=== PATIENT | male | born 1965 | race Caucasian/White ===

== ENCOUNTER 2023-09-13 20:31 | Emergency (ER) | payer OTHER, SELFPAY ==
[2023-09-13 20:35] VITALS: BMI 22.1
[2023-09-13 20:36] VITALS: BP 139/79; BMI 22.4
[2023-09-13 21:13] LABS: % Basophils 0.4 % (0-2); % Eosinophils 1.6 % (0-6); % Immature Granulocytes 0.2 % (0-0.5); % Lymphocytes 23.1 % (20.5-51.1); % Monocytes 6.6 % (1.7-9.3); % Neutrophils 68.1 % (42.2-75.2); Absolute Eosinophils 0.1 10^3/uL (0-0.7); Absolute Monocytes 0.6 10^3/uL (0.1-0.6); Absolute Neutrophils 5.8 10^3/uL (1.4-6.5); Hematocrit 31.9 % (39.0-52.0); Hemoglobin 10.9 g/dL (13.0-18.0); Mean Corp Hgb Conc. 34.2 g/dL (33.0-37.0); Mean Corpuscular Hgb 31.3 pg (27.0-31.0); Mean Corpuscular Volume 91.7 fL (80.0-94.0); Mean Platelet Volume 10.7 fL (7.4-10.4); Nucleated Red Blood Cells % 0 % (-); Platelet Count 200 10^3/uL (130-400); Red Blood Cell Count 3.48 10^6/uL (4.70-6.10); Red Cell Dist. Width 14.5 % (11.5-14.5); White Blood Cell Count 8.5 10^3/uL (4.8-10.8)
[2023-09-13 21:15] LABS: ALT (SGPT) < 10 U/L (0-50); AST (SGOT) 17 U/L (17-59); Albumin 3.8 g/dl (3.5-5.0); Alkaline Phosphatase 132 U/L (38-126); Blood Urea Nitrogen 16 mg/dl (9-20); Calcium 8.9 mg/dl (8.4-10.2); Carbon Dioxide 37 mmol/L (22-30); Chloride 92 mmol/L (98-107); Estimated Creatinine Clearance 22 ml/min; Glucose 97 mg/dl (70-99); Potassium 3.9 mmol/L (3.5-5.1); Sodium 134 mmol/L (135-145); Total Bilirubin 0.7 mg/dl (0.2-1.3); Total Protein 6.8 g/dl (6.3-8.2); Troponin I < 0.012 ng/ml; eGFR 18.76
[2023-09-13 22:05] VITALS: BP 126/105
[2023-09-13 23:00] VITALS: BP 133/67
--- NOTE | 2023-09-13 23:27 | ED.GENMED ---
History of Present Illness
General
Chief Complaint: Chest Pain
Source: patient, spouse, previous radiology exam (CT chest abdomen pelvis July 22, 2023 showed fusiform aneurysmal dilation suprarenal abdominal aorta, large amount of calcific and soft atherosclerotic plaque throughout the descending thoracic
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
Exam Limitations: none
Time Seen by Provider: 09/13/23 22:14
Nursing documentation reviewed up to this point in time: agreed with
Travel History
Have you had any contact with someone who has COVID-19?: No
Do you have any symptoms of coronavirus? Fever > 100 degrees, chills, cough, shortness of breath, sore throat, loss of taste or smell, muscle aches, or headache?: No
History of Present Illness
History of Present Illness:
This is a 57-year-old gentleman who has history of end-stage renal disease/dialysis dependent Monday/Monday/Monday, history of hypertension, CAD, PTCA with stent, CABG, hyperlipidemia. Recent hospitalization August 02 to August 08 for treatment
of acute/flash pulmonary edema with accelerated hypertension, VDRF.
He underwent cardiac catheterization during that hospitalization on August 07 which showed chronic total occlusion RCA and 80% lesion mid LAD with a patent stent in the proximal circumflex and status post single-vessel bypass with patent BLOOD to
LAD. No intervention required. Chronically occluded RCA is supplied by collaterals from the circumflex and LAD.
He presents to to the ED tonight from dialysis with complaints of severe substernal chest pain that radiates to his back that began towards the end of his dialysis treatment. He states dialysis was discontinued approximately 30 minutes prior to his
usual ending time. He denies shortness of breath, no nausea nor vomiting, no diaphoresis, no palpitations.
No definitive aggravating or relieving factors.
Moderate pain upon arrival to the ED had resolved but intermittently returns.
He has history of abdominal aortic aneurysm repair/bypass graft and history of suprarenal abdominal aortic aneurysm�4.5 cm as well as history of significant atherosclerosis of thoracic and abdominal right aorta as well as history of significant
intra-abdominal atherosclerosis.
He suffered COVID-19 URI 2 weeks ago, testing + August 29. URI symptoms resolved last week but he does continue with mild intermittent dry cough. He has had no shortness of breath.
He has noted some intermittent mid to lower abdominal crampy pain over the past week and initially thought that he was constipated. He gave himself a suppository yesterday and did pass a somewhat hard nonbloody stool today. No change in abdominal
pain that has been intermittent, mid to lower abdominal pain, somewhat crampy in nature.
He denies fever nor chills.
He is chronically an uric.
Past History
Past History
ED Past Medical History: CAD, HTN, Hypercholesterolemia, IDDM, Renal failure and Other (End-stage renal disease, diabetic neuropathy, severe ASCVD)
ED Past Surgical History: Cardiac (CABG of LAD February 07, 2022; PTCA with stent), Orthopedic (Left knee) and Other (AAA repair December 2019)
Social History
Tobacco: Smoker
Alcohol: Daily
Drug: None
Personal:
Living: with family
Employment: Employed
Family History
Family History: Other (AAA, CAD)
Phy Exam
Physical Exam
Physical Exam:
GENERAL: Alert , in no apparent distress. 57-year-old gentleman appears his stated age, awake and alert, pleasant, appears in no acute distress. at bedside.
EYE: pupils equal and reactive. anicteric
NECK: Supple, nontender, no meningismus, no significant adenopathy.
ENT: oral mucosa is moist. No rhinorrhea.
CARDIAC: Regular rate and rhythm. no murmur.
LUNGS: Clear breath sounds bilaterally, no acute respiratory distress, no wheezes/rales/rhonchi
ABDOMEN: Soft, nondistended, mild tenderness right lower quadrant as well as mild tenderness epigastric region, no r/g, no cvat. normoactive BS. No palpable masses.
NEUROLOGICAL: Alert and oriented x3, no focal neuro deficits.
SKIN: Warm and dry, normal color, skin intact. No rash.
MUSCULOSKELETAL: No C/C/E. peripheral pulses are full and equal b/l. No palpable tenderness. AV graft left upper arm.
PSYCH: Normal and appropriate interaction.
Scores
Heart Score for Chest Pain Patients
STEMI patient?: No
History: Slightly or Non-Suspicious
ECG: Normal
Age: >45 - <65 years
Risk Factors: >/= 3 Risk Factors or History of CAD
Troponin: </= Normal Limit
Heart Score for Chest Pain Patients: 3
Heart Score Risk: 2.5% MACE over next 6 weeks
Course
Orders/Labs/Results
Orders:
Orders
09/13/23 20:35
Electrocardiogram (*1) Urgent
Reason for Study: Chest Pain
EKG- Treatment ONCE
09/13/23 20:42
Complete Blood Count/With Diff Urgent
Comprehensive Metabolic Panel Urgent
Lipase Urgent
Comment: ADD ON
Troponin I Urgent
09/13/23 22:51
Add On- LAB Urgent
Tests Added?: lipase
09/13/23 22:56
Lactic Acid Urgent
09/13/23 22:57
EKG- Treatment ONCE
Troponin I Urgent
09/14/23 00:30
Ct Chest/Abd/Pel Angio W/Wo Iv Urgent
Reason For Exam: severe CP rad to back, mid/lower abd pain
09/14/23 01:54
Pantoprazole [Protonix] 40 mg PO NOW STA
Abnormal Lab Results
09/13/23
20:42
RBC 3.48 L 10^6/uL
(4.70-6.10)
Hgb 10.9 L g/dL
(13.0-18.0)
Hct 31.9 L %
(39.0-52.0)
MCH 31.3 H pg
(27.0-31.0)
MPV 10.7 H fL
(7.4-10.4)
Sodium 134 L mmol/L
(135-145)
Chloride 92 L mmol/L
(98-107)
Carbon Dioxide 37 H mmol/L
(22-30)
Creatinine 3.6 H mg/dL
(0.7-1.3)
Alkaline Phosphatase 132 H U/L
(38-126)
09/13/23 20:42
09/13/23 20:42
Vital Signs
Initial and Last Documented VS:
Initial Vital Signs
Temp Pulse Resp BP Pulse Ox
98.2 F 93 16 139/79 98
09/13/23 20:36 09/13/23 20:36 09/13/23 20:36 09/13/23 20:36 09/13/23 20:36
Last Documented Vital Signs
Temp Pulse Resp BP Pulse Ox
98.2 F 77 11 106/68 98
09/13/23 20:36 09/14/23 01:45 09/14/23 01:45 09/14/23 01:00 09/14/23 01:45
MDM/Problems Addressed
Differential Diagnosis Includes:
Concern for ACS, GERD, biliary colic, aortic dissection. Patient pneumonia is less likely. He does note mild residual cough status post COVID URI 2 weeks ago. Post COVID PE is certainly a consideration.
He has had a 1 week history of intermittent mid to lower abdominal pain with known atherosclerosis, concern for intermittent ischemic bowel is certainly a consideration. Other consideration is biliary colic, appendicitis, constipation, pancreatitis.
Thus far labs are reassuring with mild but stable anemia.
Creatinine of 3.6, mild metabolic alkalosis.
Alkaline phosphatase 132, improved from previous. All other LFTs within normal limits. Due to epigastric tenderness on exam will check lipase.
Will check lactic acid, concern for intermittent intra-abdominal ischemia.
Troponin thus far is negative and EKG is similar and unchanged from previous. Will plan to repeat both.
Due to significant chest pain, radiating to the back, intermittent abdominal pain, significant aortic atherosclerosis there is significant concern for dissection thus will check CTA chest abdomen pelvis.
*Radiology
Radiology exam reviewed: radiology read reviewed
*Pulse Oximetry
Patient hypoxic: no
*EKG
Interpreted by ED Provider?: Yes
Comparison EKG: no changes
Rate: normal
Rhythm: sinus
[place]: left axis deviation
Interval: normal interval
QRS Pattern: normal QRS
Ischemia: no ischemia
*Foundry Molder Interpretation
Rate: normal
Interpretation: normal
Rhythm: sinus
*Critical Care Note
Total Time (30-74mins, 75-104mins- exclusive of procedures): Not Applicable
Update Note
Update Note:
09/14/2023 0155 AM
Patient remains pain-free and comfortable.
Repeat troponin is negative.
Lactic acid is normal at 0.9.
CTA chest abdomen pelvis similar and unchanged from previous showing extensive soft calcific atherosclerotic plaque along the thoracic and abdominal aorta but no evidence of dissection. No bowel obstruction nor obstructive uropathy. Unremarkable
CT appearance of the gallbladder, biliary tract and pancreas.
Intermittent chest pain along with mild epigastric tenderness to palpation may be gastritis/GERD in nature and recommend initiation of short course of Protonix and will add Carafate for as needed chest pain.
Prompt follow-up with PCP, inside sales account representative and primary finisher merchant products.
Return precautions discussed.
ED Attending Note
-
Portions of this chart may have been created with voice recognition software.� Occasional wrong word or��sound alike� substitutions may have occurred due to the inherent limitations of voice recognition software.
Discharge Plan
Departure
Patient Disposition: Home (Routine Discharge)
Date of Disposition: 09/14/23
Time of Disposition: 01:56
Patient with high blood pressure during this ER visit?: No
Condition: Good
Discharge Problem:
Nonspecific chest pain
Instructions: Acid Reflux and GERD in Adults (DC), Chest Pain NON-DHP Body Coverer Follow Up
Prescriptions:
New
pantoprazole 20 mg tablet,delayed release (DR/EC)
20 mg PO DAILY Qty: 30 0RF
sucralfate 1 gram tablet
1 g PO QIDPRN PRN (Reason: acid reflux) Qty: 30 0RF
No Action
atorvastatin 80 MG tablet
80 mg PO HS
gabapentin 300 MG capsule
300 mg PO HS
cholecalciferol (vitamin D3) 1,000 UNITS tablet
1,000 units PO DAILY
carvedilol 12.5 mg Tablet
25 mg PO BID Qty: 60 0RF
aspirin 81 mg Tablet,Delayed Release (Dr/Ec)
81 mg PO DAILY
Velphoro 500 mg tablet,chewable
500 mg PO MEALS
Lokelma 10 gram powder in packet
10 g PO .UD NON HD DAYS
lisinopril 10 mg Tablet
10 mg PO DAILY
Levemir FlexPen 100 unit/mL (3 mL) Insulin Pen
5 unit SC HS
sodium polystyrene sulfonate 15 gram/60 mL Suspension
60 ml PO DAILY
Patient Comments:
filled on 07/10/23
insulin aspart U-100 [Novolog U-100 Insulin aspart] 100 unit/mL Solution
5 unit SC AC
Referrals:
Troy Husain MD [Family Provider] - Call in 1-3 days for appt
Interventions
Interventions:
*Risk Screen - Suicide Last Done: 09/13/23 20:36
*General Assessment Last Done: 09/13/23 22:06
*Neglect/Abuse Screening Last Done: 09/13/23 20:36
ED- Fall Risk Assessment Last Done: 09/13/23 22:08
*ED COVID-19 Vaccine History Last Done: 09/13/23 20:36
*Nursing Disposition Last Done: 09/14/23 02:04
ED- Cardiac Assessment Last Done: 09/13/23 22:07
Discharge Date and Time
Discharge Date/Time: 09/14/23 02:05
[2023-09-13 23:30] LABS: Lipase 157 U/L (23-300)
[2023-09-14] VITALS: BP 114/57
[2023-09-14 00:30] LABS: Lactic Acid 0.9 mmol/L (0.7-2.0)
[2023-09-14 00:43] LABS: Troponin I < 0.012 ng/ml
[2023-09-14 00:47] VITALS: BP 125/69
[2023-09-14 01:00] VITALS: BP 106/68
[2023-09-14] MEDS: PROTONIX 40 MG PO (02:00)
== END 2023-09-14 02:05 | disposition home or self-care (01) ==
LOC: EMR 20:31
PROVIDERS: Emergency Medicine; EMERGENCY PHYSICIAN Emergency Medicine; FAMILY PHYSICIAN Internal Medicine
DX: R07.89 Other chest pain (principal); I25.10 Atherosclerotic heart disease of native coronary artery without angina pectoris; I12.0 Hypertensive chronic kidney disease with stage 5 chronic kidney disease or end stage renal disease; N18.6 End stage renal disease; E11.22 Type 2 diabetes mellitus with diabetic chronic kidney disease; E11.40 Type 2 diabetes mellitus with diabetic neuropathy, unspecified; D64.9 Anemia, unspecified; E78.00 Pure hypercholesterolemia, unspecified; F17.200 Nicotine dependence, unspecified, uncomplicated; Z82.49 Family history of ischemic heart disease and other diseases of the circulatory system; Z86.79 Personal history of other diseases of the circulatory system; Z95.1 Presence of aortocoronary bypass graft; Z95.5 Presence of coronary angioplasty implant and graft; Z99.2 Dependence on renal dialysis
CPT/HCPCS: 99284; 71275; 74174; 80053; 83605; 83690; 84484; 85025; 93005; Q9967

== ENCOUNTER 2023-09-28 08:38 | Outpatient (RCR) | payer OTHER, SELFPAY ==
[2023-09-27 13:29] LABS: Glucose - Point of Care 269 mg/dl (70-99)
[2023-09-27 14:07] LABS: Glucose - Point of Care 217 mg/dl (70-99)
[2023-09-28 08:38] LABS: Glucose - Point of Care 181 mg/dl (70-99)
[2023-09-28 09:16] LABS: Glucose - Point of Care 197 mg/dl (70-99)
== END 2023-09-28 23:59 | disposition home or self-care (01) ==
LOC: CRHB 08:38
PROVIDERS: ATTENDING PHYSICIAN Surgery Vascular Surgery; FAMILY PHYSICIAN Internal Medicine
DX: I70.213 Atherosclerosis of native arteries of extremities with intermittent claudication, bilateral legs (principal)
CPT/HCPCS: 82962; 93668

== ENCOUNTER 2023-10-08 12:38 | Emergency (ER) | payer OTHER, SELFPAY ==
[2023-10-08 12:41] VITALS: BP 164/94
[2023-10-08 12:58] VITALS: BP 175/89
--- NOTE | 2023-10-08 12:59 | ED.GENMED ---
History of Present Illness
General
Chief Complaint: Back Pain
Source: patient and other
Time Seen by Provider: 10/08/23 12:49
Travel History
Have you had any contact with someone who has COVID-19?: No
Do you have any symptoms of coronavirus? Fever > 100 degrees, chills, cough, shortness of breath, sore throat, loss of taste or smell, muscle aches, or headache?: No
History of Present Illness
History of Present Illness:
57-year-old male started with vague chest pain and upper back pain 2 days ago. Progressed and became much more severe to the excruciating point today. Nonpleuritic. Mid chest radiating to the back. No nausea or vomiting. Patient does not want
to add history and when asked becomes very angry to answer questions.
Past History
Past History
ED Past Medical History: CAD, HTN, Hypercholesterolemia, IDDM, Renal failure and Other (End-stage renal disease, diabetic neuropathy, severe ASCVD)
ED Past Surgical History: Cardiac (CABG of LAD February 07, 2022; PTCA with stent), Orthopedic (Left knee) and Other (AAA repair December 2019)
Social History
Tobacco: Smoker
Alcohol: Daily
Drug: None
Personal:
Living: with family
Employment: Employed
Family History
Family History: Other (AAA, CAD)
Review of Systems
Review of Systems
All Other Systems: Not applicable
Constitutional: Denies fever
Respiratory: Denies trouble breathing
Cardiac: Denies palpitations
Phy Exam
Physical Exam
Physical Exam:
GENERAL: Alert and oriented. Screaming in pain. Very angry answering questions and angry with staff
EYE: Orbits normal.
NECK: Supple
CARDIAC: Regular rate and rhythm without any obvious murmurs.
LUNGS: Clear breath sounds,normal
ABDOMEN: Soft, without focal tenderness or distention. Some left CVA tenderness
NEUROLOGICAL: Alert and oriented , grossly non-focal
SKIN: Warm and dry, no rash or lesion, no discoloration, skin intact. No vesicular rash
MUSCULOSKELETAL: Shunt left arm. Good thrill.
PSYCH: Normal and appropriate interaction.
Course
Orders/Labs/Results
Orders:
Orders
10/08/23 12:39
EKG [Electrocardiogram (*1)] Urgent
Reason for Study: Chest Pain
EKG- Treatment ONCE
10/08/23 12:54
CT Chest/abd/pelvis Angio W/wo Urgent
Comment:
Reason For Exam: Severe chest pain radiating to the back
IV Insert/Care/Rem.- Treatment PRN
Pulse Ox/cont/shift [RESP] Stat
Quantity: 1
10/08/23 12:55
Cardiac Monitoring- Treatment ONCE
HYDROmorphone [Dilaudid] 0.5 mg .ROUTE .STK-MED ONE
10/08/23 12:56
HYDROmorphone [Dilaudid] 0.5 mg IV NOW STA
10/08/23 12:58
Complete Blood Count/With Diff Urgent
Comprehensive Metabolic Panel Urgent
Lipase Urgent
PTT Urgent
Prothrombin Time Urgent
Troponin I Urgent
10/08/23 13:11
HYDROmorphone [Dilaudid] 0.5 mg IV NOW STA
Abnormal Lab Results
10/08/23
12:58
RBC 3.38 L 10^6/uL
(4.70-6.10)
Hgb 10.4 L g/dL
(13.0-18.0)
Hct 30.5 L %
(39.0-52.0)
RDW 15.8 H %
(11.5-14.5)
MPV 10.6 H fL
(7.4-10.4)
APTT 35.5 H Sec
(23.4-35.0)
Sodium 134 L mmol/L
(135-145)
Chloride 92 L mmol/L
(98-107)
Carbon Dioxide 31 H mmol/L
(22-30)
BUN 40 H mg/dl
(9-20)
Creatinine 7.5 H* mg/dL
(0.7-1.3)
Glucose 211 H mg/dl
(70-99)
AST 16 L U/L
(17-59)
Alkaline Phosphatase 176 H U/L
(38-126)
10/08/23 12:58
10/08/23 12:58
Vital Signs
Initial and Last Documented VS:
Initial Vital Signs
Temp Pulse Resp BP Pulse Ox
97.5 F 87 20 164/94 100
10/08/23 12:41 10/08/23 12:41 10/08/23 12:41 10/08/23 12:41 10/08/23 12:41
Last Documented Vital Signs
Temp Pulse Resp BP Pulse Ox
97.5 F 81 25 160/79 99
10/08/23 12:41 10/08/23 15:00 10/08/23 15:00 10/08/23 15:00 10/08/23 15:00
MDM/Problems Addressed
Differential Diagnosis Includes:
Progressive chest pain rating to the back. Cardiac, dissection, kidney stone all in the differential. Previous episode September 13 is describing a similar type event with a negative CT at that time. However patient warrants repeat workup given
the severity of his symptoms.
*Radiology
Radiology exam reviewed: radiology read reviewed (No acute findings. Stable disease. Small new ulcerative plaque. Otherwise unremarkable.)
*Pulse Oximetry
Patient hypoxic: no
*EKG
Interpreted by ED Provider?: Yes
Interpretation: normal
Comparison EKG: no changes
Heart Rate: 87
Rate: normal
Rhythm: sinus
[place]: normal axis
Interval: normal interval
QRS Pattern: normal QRS
Ischemia: no ischemia
*Associate Professor Of Pathology Interpretation
Rate: normal
Interpretation: normal
Heart Rate: 85
Rhythm: sinus
*Critical Care Note
Total Time (30-74mins, 75-104mins- exclusive of procedures): Not Applicable
Data Reviewed
Review of Other/Old Records Reveals: Labs, Records and Testing
Update Note
Update Note:
Recommended patient stay for repeat cardiac testing and stay for observation and pain management. Patient refuses. I reviewed all his testing with him. Also made vascular surgery aware. However there does not appear to be any acute surgical
vascular findings.
ED Attending Note
-
Portions of this chart may have been created with voice recognition software.� Occasional wrong word or��sound alike� substitutions may have occurred due to the inherent limitations of voice recognition software.
Discharge Plan
Departure
Patient Disposition: Home (Routine Discharge)
Date of Disposition: 10/08/23
Time of Disposition: 14:59
Patient with high blood pressure during this ER visit?: Yes
Discharge Problem:
Chest pain/radiation to back, Known abdominal aneurysm, History of renal failure
Instructions: Chest Pain (DC), Upper Back Pain (DC), BLOOD PRESSURE
Prescriptions:
New
hydrocodone-acetaminophen 5-325 mg tablet
1 tab PO Q8H PRN (Reason: Pain) Qty: 10 0RF
No Action
atorvastatin 80 MG tablet
80 mg PO HS
gabapentin 300 MG capsule
300 mg PO HS
cholecalciferol (vitamin D3) 1,000 UNITS tablet
1,000 units PO DAILY
carvedilol 12.5 mg Tablet
25 mg PO BID Qty: 60 0RF
aspirin 81 mg Tablet,Delayed Release (Dr/Ec)
81 mg PO DAILY
Velphoro 500 mg tablet,chewable
500 mg PO MEALS
Lokelma 10 gram powder in packet
10 g PO .UD NON HD DAYS
lisinopril 10 mg Tablet
10 mg PO DAILY
Levemir FlexPen 100 unit/mL (3 mL) Insulin Pen
5 unit SC HS
sodium polystyrene sulfonate 15 gram/60 mL Suspension
60 ml PO DAILY
Patient Comments:
filled on 07/10/23
insulin aspart U-100 [Novolog U-100 Insulin aspart] 100 unit/mL Solution
5 unit SC AC
pantoprazole 20 mg tablet,delayed release (DR/EC)
20 mg PO DAILY Qty: 30 0RF
sucralfate 1 gram tablet
1 g PO QIDPRN PRN (Reason: acid reflux) Qty: 30 0RF
Referrals:
Troy Husain PA [Family Provider] - Follow up in 2-3 days
Activity Restrictions/Additional Instructions:
The prescription was sent into your pharmacy
Follow-up closely with your vascular surgeon primary physician and jewelry sorter please return sooner with increasing pain
Any new chest pain shortness of breath fever or any other concerning symptoms
Interventions
Interventions:
*Risk Screen - Suicide Last Done: 10/08/23 15:11
*General Assessment Last Done: 10/08/23 12:41
*Neglect/Abuse Screening Last Done: 10/08/23 15:11
*ED COVID-19 Vaccine History Last Done: 10/08/23 12:41
*Nursing Disposition Last Done: 10/08/23 15:13
ED-Musculoskeletal Assessment Last Done: 10/08/23 12:50
Discharge Date and Time
Discharge Date/Time: 10/08/23 15:16
[2023-10-08] MEDS: DILAUDID 0.5 MG IV ×2 (13:00→13:12)
--- NOTE | 2023-10-08 13:00 | EDRN ---
Pt yelling out on arrival, this RN immediately to front entrance to assist pt with brief registration, then brought directly to triage room. Attempt to obtain brief triage, during this process pt very confrontational, verbally insulting to this RN,
not answering assessment questions and yelling 'Do something!' Pt resistant to any explanation of ED process. Pt brought directly back to room [address] Navarro notified. This RN shortly thereafter to room 2 to assist Yaneth freelance designer with initial
workup. This RN witnessed pt again making insulting comments to Yaneth RN, continues to behave aggressively and remains inappropriate and confrontational.
[2023-10-08 13:08] LABS: % Basophils 0.7 % (0-2); % Eosinophils 2.7 % (0-6); % Immature Granulocytes 0.4 % (0-0.5); % Lymphocytes 21.7 % (20.5-51.1); % Monocytes 7.4 % (1.7-9.3); % Neutrophils 67.1 % (42.2-75.2); Absolute Basophils 0.1 10^3/uL (0-0.2); Absolute Eosinophils 0.2 10^3/uL (0-0.7); Absolute Lymphocytes 1.8 10^3/uL (1.2-3.4); Absolute Monocytes 0.6 10^3/uL (0.1-0.6); Absolute Neutrophils 5.6 10^3/uL (1.4-6.5); Hematocrit 30.5 % (39.0-52.0); Hemoglobin 10.4 g/dL (13.0-18.0); Mean Corp Hgb Conc. 34.1 g/dL (33.0-37.0); Mean Corpuscular Hgb 30.8 pg (27.0-31.0); Mean Corpuscular Volume 90.2 fL (80.0-94.0); Mean Platelet Volume 10.6 fL (7.4-10.4); Nucleated Red Blood Cells % 0 % (-); Platelet Count 212 10^3/uL (130-400); Red Blood Cell Count 3.38 10^6/uL (4.70-6.10); Red Cell Dist. Width 15.8 % (11.5-14.5); White Blood Cell Count 8.4 10^3/uL (4.8-10.8)
[2023-10-08 13:10] VITALS: BP 166/91
[2023-10-08 13:20] LABS: APTT 35.5 Sec (23.4-35.0); INR 1.01; PT 13.1 Sec (11.4-14.6)
[2023-10-08 13:27] LABS: ALT (SGPT) < 10 U/L (0-50); AST (SGOT) 16 U/L (17-59); Albumin 3.9 g/dl (3.5-5.0); Alkaline Phosphatase 176 U/L (38-126); Blood Urea Nitrogen 40 mg/dl (9-20); Calcium 9.3 mg/dl (8.4-10.2); Carbon Dioxide 31 mmol/L (22-30); Chloride 92 mmol/L (98-107); Glucose 211 mg/dl (70-99); Lipase 191 U/L (23-300); Potassium 4.4 mmol/L (3.5-5.1); Sodium 134 mmol/L (135-145); Total Bilirubin 0.6 mg/dl (0.2-1.3); Total Protein 6.8 g/dl (6.3-8.2); eGFR 7.77
[2023-10-08 13:30] VITALS: BP 178/83
[2023-10-08 13:35] LABS: Troponin I 0.014 ng/ml
[2023-10-08 14:00] VITALS: BP 168/81
[2023-10-08 15:00] VITALS: BP 160/79
== END 2023-10-08 15:16 | disposition home or self-care (01) ==
LOC: EMR 12:38
PROVIDERS: EMERGENCY PHYSICIAN Emergency Medicine; FAMILY PHYSICIAN Physician Assistant
DX: R07.89 Other chest pain (principal); M54.9 Dorsalgia, unspecified; I25.10 Atherosclerotic heart disease of native coronary artery without angina pectoris; E78.00 Pure hypercholesterolemia, unspecified; I13.2 Hypertensive heart and chronic kidney disease with heart failure and with stage 5 chronic kidney disease, or end stage renal disease; E11.22 Type 2 diabetes mellitus with diabetic chronic kidney disease; N18.6 End stage renal disease; I50.9 Heart failure, unspecified; E11.40 Type 2 diabetes mellitus with diabetic neuropathy, unspecified; Z95.1 Presence of aortocoronary bypass graft; F17.200 Nicotine dependence, unspecified, uncomplicated
CPT/HCPCS: 99284; 71275; 74174; 80053; 83690; 84484; 85025; 85610; 85730; 93005; Q9967

== ENCOUNTER 2023-10-19 08:50 | Outpatient (RCR) | payer OTHER, SELFPAY ==
[2023-10-03 08:36] LABS: Glucose - Point of Care 123 mg/dl (70-99)
[2023-10-03 09:15] LABS: Glucose - Point of Care 117 mg/dl (70-99)
[2023-10-05 08:34] LABS: Glucose - Point of Care 298 mg/dl (70-99)
[2023-10-05 09:10] LABS: Glucose - Point of Care 207 mg/dl (70-99)
[2023-10-10 08:37] LABS: Glucose - Point of Care 111 mg/dl (70-99)
[2023-10-10 09:16] LABS: Glucose - Point of Care 162 mg/dl (70-99)
[2023-10-17 08:37] LABS: Glucose - Point of Care 247 mg/dl (70-99)
[2023-10-17 09:14] LABS: Glucose - Point of Care 265 mg/dl (70-99)
[2023-10-19 08:37] LABS: Glucose - Point of Care 334 mg/dl (70-99)
== END 2023-10-19 23:59 | disposition home or self-care (01) ==
LOC: CRHB 08:50
PROVIDERS: ATTENDING PHYSICIAN Surgery Vascular Surgery; FAMILY PHYSICIAN Internal Medicine
DX: I70.213 Atherosclerosis of native arteries of extremities with intermittent claudication, bilateral legs (principal)
CPT/HCPCS: 82962; 93668

== ENCOUNTER → 2023-11-08 09:07 | Outpatient (REF) | payer OTHER, SELFPAY ==
[2023-11-09 10:16] LABS: Potassium 6.1 mmol/L (3.5-5.1)
== END ==
LOC: OLAB 09:07
PROVIDERS: ATTENDING PHYSICIAN Specialist
DX: N18.6 End stage renal disease (principal)
CPT/HCPCS: 84132

== ENCOUNTER 2023-11-16 08:53 | Outpatient (RCR) | payer OTHER, SELFPAY ==
[2023-11-09 08:38] LABS: Glucose - Point of Care 156 mg/dl (70-99)
[2023-11-09 09:12] LABS: Glucose - Point of Care 138 mg/dl (70-99)
[2023-11-14 08:33] LABS: Glucose - Point of Care 122 mg/dl (70-99)
[2023-11-14 09:07] LABS: Glucose - Point of Care 133 mg/dl (70-99)
[2023-11-16 08:34] LABS: Glucose - Point of Care 144 mg/dl (70-99)
[2023-11-16 09:24] LABS: Glucose - Point of Care 161 mg/dl (70-99)
== END 2023-11-16 23:59 | disposition home or self-care (01) ==
LOC: CRHB 08:53
PROVIDERS: ATTENDING PHYSICIAN Surgery Vascular Surgery; FAMILY PHYSICIAN Internal Medicine
DX: I70.213 Atherosclerosis of native arteries of extremities with intermittent claudication, bilateral legs (principal); I25.10 Atherosclerotic heart disease of native coronary artery without angina pectoris; Z95.5 Presence of coronary angioplasty implant and graft; Z95.1 Presence of aortocoronary bypass graft
CPT/HCPCS: 82962; 93668

== ENCOUNTER → 2024-04-24 09:28 | Outpatient (REF) | payer OTHER, SELFPAY | LOC: RAD 09:28 | PROVIDERS: ATTENDING PHYSICIAN Surgery Vascular Surgery; FAMILY PHYSICIAN Internal Medicine | DX: N18.6 End stage renal disease (principal); Z99.2 Dependence on renal dialysis; I71.43 Infrarenal abdominal aortic aneurysm, without rupture | CPT/HCPCS: 74174; Q9967 ==

== ENCOUNTER → 2024-04-26 10:49 | Outpatient (REF) | payer OTHER, SELFPAY | LOC: RAD 10:49 | PROVIDERS: ATTENDING PHYSICIAN Surgery Vascular Surgery; FAMILY PHYSICIAN Internal Medicine | DX: I73.9 Peripheral vascular disease, unspecified (principal) | CPT/HCPCS: 93922 ==

== ENCOUNTER → 2024-06-04 07:12 | Outpatient (REF) | payer OTHER, SELFPAY | LOC: HWRCS 07:12 | PROVIDERS: ATTENDING PHYSICIAN Internal Medicine Cardiovascular Disease; FAMILY PHYSICIAN Internal Medicine | DX: I25.5 Ischemic cardiomyopathy (principal) | CPT/HCPCS: 93306 ==

== ENCOUNTER → 2024-11-14 13:51 | Outpatient (REF) | payer OTHER, SELFPAY | LOC: DHVS 13:51 | PROVIDERS: ATTENDING PHYSICIAN Surgery Vascular Surgery; FAMILY PHYSICIAN Internal Medicine | DX: I77.0 Arteriovenous fistula, acquired (principal); I73.9 Peripheral vascular disease, unspecified | CPT/HCPCS: 93922; 93990 ==

== ENCOUNTER → 2024-11-21 07:50 | Outpatient (REF) | payer OTHER, SELFPAY | LOC: RAD 07:50 | PROVIDERS: ATTENDING PHYSICIAN Surgery Vascular Surgery; FAMILY PHYSICIAN Internal Medicine | DX: I71.40 Abdominal aortic aneurysm, without rupture, unspecified (principal) | CPT/HCPCS: 71275; 74174; Q9967 ==

== ENCOUNTER 2024-11-26 18:16 | Emergency (ER) | payer OTHER, SELFPAY ==
[2024-11-26 18:23] VITALS: BP 137/93
[2024-11-26 18:38] LABS: % Basophils 0.5 % (0-2); % Immature Granulocytes 0.5 % (0-0.5); % Lymphocytes 11.2 % (20.5-51.1); % Neutrophils 80.8 % (42.2-75.2); Absolute Basophils 0.1 10^3/uL (0-0.2); Absolute Eosinophils 0.2 10^3/uL (0-0.7); Absolute Immature Granulocytes 0.1 10^3/uL (0-0.05); Absolute Lymphocytes 1.7 10^3/uL (1.2-3.4); Absolute Monocytes 0.9 10^3/uL (0.1-0.6); Absolute Neutrophils 11.9 10^3/uL (1.4-6.5); Hematocrit 34.1 % (39.0-52.0); Hemoglobin 11.6 g/dL (13.0-18.0); Mean Corpuscular Hgb 33.2 pg (27.0-31.0); Mean Corpuscular Volume 97.7 fL (80.0-94.0); Mean Platelet Volume 10.9 fL (7.4-10.4); Nucleated Red Blood Cells % 0 % (-); Platelet Count 141 10^3/uL (130-400); Red Blood Cell Count 3.49 10^6/uL (4.70-6.10); White Blood Cell Count 14.8 10^3/uL (4.8-10.8)
[2024-11-26 19:05] LABS: ALT (SGPT) 13 U/L (0-50); AST (SGOT) 16 U/L (17-59); Albumin 3.9 g/dl (3.5-5.0); Alkaline Phosphatase 122 U/L (38-126); Blood Urea Nitrogen 27 mg/dl (9-20); Calcium 9.9 mg/dl (8.4-10.2); Carbon Dioxide 31 mmol/L (22-30); Chloride 93 mmol/L (98-107); Glucose 132 mg/dl (70-99); Lipase 288 U/L (23-300); Potassium 4.9 mmol/L (3.5-5.1); Sodium 137 mmol/L (135-145); Total Bilirubin 0.8 mg/dl (0.2-1.3); Total Protein 6.5 g/dl (6.3-8.2); eGFR 7.93
--- NOTE | 2024-11-26 20:50 | ED.GENMED ---
History of Present Illness
General
Chief Complaint: Abdominal Pain
Source: patient
Exam Limitations: none
Time Seen by Provider: 11/26/24 20:21
Nursing documentation reviewed up to this point in time: agreed with
History of Present Illness
History of Present Illness:
Patient is a 59-year-old male with past medical history of end-stage renal disease on hemodialysis Monday, abdominal aortic aneurysm repair, CABG, pulmonary edema neuropathy presents to the ER with right lower quadrant pain which
started last night. Patient complains of persistent right lower quadrant pain. He denies any nausea vomiting fever chills. PT admits to ' a little diarrhea last night and this am .'
Incidentally patient recently had a CT chest abdomen pelvis angiogram for follow-up on his aortic aneurysm 4 days ago however he did not have abdominal pain at that time.
Past History
Past History
ED Past Medical History: CAD, HTN, Hypercholesterolemia, IDDM, Renal failure and Other (End-stage renal disease, diabetic neuropathy, severe ASCVD)
ED Past Surgical History: Cardiac (CABG of LAD February 07, 2022; PTCA with stent), Orthopedic (Left knee) and Other (AAA repair December 2019)
Social History
Tobacco: Smoker
Alcohol: Daily
Drug: None
Personal:
Living: with family
Employment: Employed
Family History
Family History: Other (AAA, CAD)
Review of Systems
Review of Systems
Allergies reviewed?: Yes
All Other Systems: ROS reviewed and negative except as documented in HPI and ROS
Constitutional: Reports no symptoms; Denies fever, fatigue or chills
Respiratory: Reports no symptoms
Cardiac: Reports no symptoms
ABD/GI: Reports abdominal pain; Denies nausea, vomiting or diarrhea
: Reports no symptoms
Musculoskeletal: Reports no symptoms
Skin: Reports no symptoms
Neurological: Reports no symptoms
Psychiatric: Reports no symptoms
Phy Exam
General Physical Exam
General Presentation: no apparent distress
General age: appears stated age
General Skin: warm and dry
General Habitus: normal
General Mental: alert
General Hydration: appears well hydrated
Gastrointestinal Exam
Gastrointestinal Exam: soft and other (very tender rlq region )
Course
Orders/Labs/Results
Orders:
Orders
11/26/24 18:31
Complete Blood Count/With Diff Urgent
Comprehensive Metabolic Panel Urgent
Lipase Urgent
11/26/24 20:04
Iohexol [Omnipaque] See Protocol PO NOW STA
11/26/24 21:05
CT Abd/pelvis W Iv Cont Urgent
Comment:
Reason For Exam: rlq pain elevated wbc
11/27/24 00:22
Lactic Acid Urgent
11/27/24 01:12
Amoxicillin 875 mg/Clav 125 mg [Augmentin 875 mg/125 mg] 1 tablet PO NOW STA
Abnormal Lab Results
11/26/24
18:31
WBC 14.8 H 10^3/uL
(4.8-10.8)
RBC 3.49 L 10^6/uL
(4.70-6.10)
Hgb 11.6 L g/dL
(13.0-18.0)
Hct 34.1 L %
(39.0-52.0)
MCV 97.7 H fL
(80.0-94.0)
MCH 33.2 H pg
(27.0-31.0)
RDW 15.0 H %
(11.5-14.5)
MPV 10.9 H fL
(7.4-10.4)
Abs Immat Gran (auto) 0.1 H 10^3/uL
(0-0.05)
Absolute Neuts (auto) 11.9 H 10^3/uL
(1.4-6.5)
Absolute Monos (auto) 0.9 H 10^3/uL
(0.1-0.6)
Neutrophils % 80.8 H %
(42.2-75.2)
Lymphocytes % 11.2 L %
(20.5-51.1)
Chloride 93 L mmol/L
(98-107)
Carbon Dioxide 31 H mmol/L
(22-30)
BUN 27 H mg/dl
(9-20)
Creatinine 7.3 H* mg/dL
(0.7-1.3)
Glucose 132 H mg/dl
(70-99)
AST 16 L U/L
(17-59)
11/26/24 18:31
11/26/24 18:31
Vital Signs
Initial and Last Documented VS:
Initial Vital Signs
Temp Pulse Resp BP Pulse Ox
98.6 F 110 18 137/93 95
11/26/24 18:23 11/26/24 18:23 11/26/24 18:23 11/26/24 18:23 11/26/24 18:23
Last Documented Vital Signs
Temp Pulse Resp BP Pulse Ox
98.6 F 96 13 124/73 96
11/26/24 18:23 11/26/24 22:45 11/26/24 22:45 11/26/24 22:28 11/26/24 22:00
MDM/Problems Addressed
Differential Diagnosis Includes:
not limited to: Colitis appendicitis less likely diverticulitis
MDM/Problems Addressed:
Patient is a 5-year-old male with complaint of right-sided abdominal pain. Patient very tender to the right lower quadrant. Symptoms started last night. He had had mild diarrhea last night and this morning. He also had moderate amount of
diarrhea here in the ER. CAT scan however shows circumferential wall thickening involving the cecum and proximal ascending colon up to 12 mm no evidence of appendicitis. Patient denies any fever chills and he is afebrile white count minimally
elevated; renal function noted patient is a dialysis patient, known potassium; normal lactic
After patient had a moderate bowel movement of diarrhea here in the ER he feels much better as discussed ED physician will order antibiotics for possible infectious colitis symptoms with close outpatient follow family doctor and GI specialist.
Chronic conditions affecting care:
esrd on HD
*Radiology
Radiology exam reviewed: radiology read reviewed
*Critical Care Note
Total Time (30-74mins, 75-104mins- exclusive of procedures): Not Applicable
ED Attending Note
-
Portions of this chart may have been created with voice recognition software.� Occasional wrong word or��sound alike� substitutions may have occurred due to the inherent limitations of voice recognition software.
Discharge Plan
Departure
Patient Disposition: Home (Routine Discharge)
Date of Disposition: 11/27/24
Time of Disposition: 01:13
Patient with high blood pressure during this ER visit?: Yes
Condition: Fair
Covid-19: Not Applicable
Discharge Problem:
Colitis
Instructions: Colitis - Discharge instructions, BLOOD PRESSURE
Prescriptions:
New
amoxicillin-pot clavulanate 875-125 mg tablet
1 tab PO BID Qty: 20 0RF
No Action
atorvastatin 80 MG tablet
80 mg PO HS
gabapentin 300 MG capsule
600 mg PO BID
cholecalciferol (vitamin D3) 1,000 UNITS tablet
1,000 units PO DAILY
aspirin 81 mg Tablet,Delayed Release (Dr/Ec)
81 mg PO DAILY
Velphoro 500 mg tablet,chewable
500 mg PO MEALS
insulin aspart U-100 [Novolog U-100 Insulin aspart] 100 unit/mL Solution
5 unit SC AC
midodrine 10 mg Tablet
20 mg PO MOWEFR
insulin glargine [Lantus Solostar U-100 Insulin] 100 unit/mL (3 mL) Insulin Pen
8 unit SC HS
icosapent ethyl 1 gram capsule
1 g PO BID
carvedilol 12.5 mg tablet
12.5 mg PO BID
Referrals:
Bridget Raygoza MD [Active] -
Troy Husain MD [Family Provider] -
Activity Restrictions/Additional Instructions:
As discussed antibiotic twice daily for the next 10 days. [place] foods as tolerated for the next several days. Please follow-up with your family doctor as well as your GI specialist in [place] please give them a call to schedule an appointment as soon as
possible . Return if any worsening of symptoms
Interventions
Interventions:
*Risk Screen - Suicide Last Done: 11/26/24 18:25
*General Assessment Last Done: 11/26/24 18:25
*Neglect/Abuse Screening Last Done: 11/26/24 18:25
*ED COVID-19 Vaccine History Last Done: 11/26/24 18:25
NM-Nlwrrw-Yxalokyroh Assessment Last Done: 11/26/24 21:07
Discharge Date and Time
Print Language: FRENCH
[2024-11-26 21:00] VITALS: BP 132/75
[2024-11-26 21:06] VITALS: BMI 25.4
[2024-11-26 22:28] VITALS: BP 124/73
[2024-11-26 23:00] VITALS: BP 137/58
[2024-11-27] VITALS: BP 114/68
[2024-11-27 00:38] LABS: Lactic Acid 1.5 mmol/L (0.7-2.0)
[2024-11-27] MEDS: AUGMENTIN 875 MG/125 MG 1 TABLET PO (01:21)
== END 2024-11-27 01:48 | disposition home or self-care (01) ==
LOC: EMR 18:16
PROVIDERS: Emergency Medicine; Nurse Practitioner; EMERGENCY PHYSICIAN Student in an Organized Health Care Education/Training Program; FAMILY PHYSICIAN Internal Medicine
DX: K52.9 Noninfective gastroenteritis and colitis, unspecified (principal); I12.0 Hypertensive chronic kidney disease with stage 5 chronic kidney disease or end stage renal disease; N18.6 End stage renal disease; F17.200 Nicotine dependence, unspecified, uncomplicated
CPT/HCPCS: 99285; 74177; 80053; 83605; 83690; 85025; Q9967

== ENCOUNTER → 2025-01-07 08:14 | Outpatient (REF) | payer OTHER, SELFPAY | LOC: HWRAD 08:14 | PROVIDERS: ATTENDING PHYSICIAN Surgery Vascular Surgery; FAMILY PHYSICIAN Internal Medicine | DX: N18.6 End stage renal disease (principal); Z99.2 Dependence on renal dialysis | CPT/HCPCS: 93990 ==

== ENCOUNTER 2025-05-01 20:53 | Inpatient (IN) | payer MEDICARE, OTHER, SELFPAY ==
[2025-05-01] VITALS (7 sets, daily range): BP systolic 80–116; BP diastolic 51–64
[2025-05-01 15:22] LABS: Hematocrit 35.9 % (39.0-52.0); Hemoglobin 12.3 g/dL (13.0-18.0); Mean Corp Hgb Conc. 34.3 g/dL (33.0-37.0); Mean Corpuscular Volume 97.3 fL (80.0-94.0); Nucleated Red Blood Cells % 0 % (-); Platelet Count 206 10^3/uL (130-400); Red Cell Dist. Width 14.9 % (11.5-14.5)
[2025-05-01 15:54] LABS: ALT (SGPT) 24 U/L (0-50); AST (SGOT) 24 U/L (17-59); Albumin 4.9 g/dl (3.5-5.0); Alkaline Phosphatase 141 U/L (38-126); Blood Urea Nitrogen 26 mg/dl (9-20); Calcium 10.0 mg/dl (8.4-10.2); Carbon Dioxide 26 mmol/L (22-30); Chloride 92 mmol/L (98-107); Glucose 151 mg/dl (70-99); Lipase 270 U/L (23-300); Potassium 4.3 mmol/L (3.5-5.1); Sodium 135 mmol/L (135-145); Total Protein 7.7 g/dl (6.3-8.2); eGFR 8.64
--- NOTE | 2025-05-01 16:42 | ED.GENMED ---
History of Present Illness
General
Chief Complaint: Rectal Bleeding
Source: patient and records
Exam Limitations: none
Time Seen by Provider: 05/01/25 16:21
Nursing documentation reviewed up to this point in time: agreed with
History of Present Illness
History of Present Illness:
59-year-old male with past medical history as noted significant for ESRD on dialysis, CAD status post stent, insulin-dependent diabetic, AAA status postrepair who presents to the emergency department sent in by his primary doctor for evaluation of
rectal bleeding and abdominal discomfort. Patient reports that he was finishing up his dialysis session last night�he says he had about 50 minutes left when he felt the urge to go to the bathroom. He says he went to the bathroom and had abdominal
cramping and painful bloody bowel movement. He says that he was up all night having multiple episodes of diarrhea mixed with blood and mucus. Saw his primary doctor today who sent him to the ER for further assessment. He reports mild pain in the
lower abdomen. He also reports some mild rectal pain. He denies any nausea or vomiting. He denies feeling short of breath or dizzy. Interestingly, he says that after his primary doctor did a rectal exam in the office today he has had some
paresthesias in the legs bilaterally which were not present prior. He denies any other acute complaints.
Past History
Past History
ED Past Medical History: CAD, HTN, Hypercholesterolemia, IDDM, Renal failure and Other (End-stage renal disease, diabetic neuropathy, severe ASCVD)
ED Past Surgical History: Cardiac (CABG of LAD February 07, 2022; PTCA with stent), Orthopedic (Left knee) and Other (AAA repair December 2019)
Social History
Tobacco: Smoker
Alcohol: Daily
Drug: None
Personal:
Living: with family
Employment: Employed
Family History
Family History: Other (AAA, CAD)
Review of Systems
Review of Systems
All Other Systems: ROS reviewed and negative except as documented in HPI and ROS
Constitutional: Denies fever or chills
Respiratory: Denies trouble breathing
Cardiac: Denies chest pain
ABD/GI: Reports abdominal pain, diarrhea and bloody stools; Denies nausea or vomiting
: Denies flank pain
Musculoskeletal: Denies neck pain or back pain
Neurological: Reports numbness (Numbness/paresthesias in the legs); Denies headache or weakness
Phy Exam
Physical Exam
Physical Exam:
General: Awake, alert, oriented x3; no acute distress
Head: Normocephalic, atraumatic
Eyes: Conjunctiva normal, sclera anicteric
Throat: Airway intact, handling secretions
Neck: Trachea midline, supple without meningismus
Lungs: Clear to auscultation bilaterally, no wheezing, rales, rhonchi
Heart: Tachycardia with regular rhythm, no murmurs, gallops, or rubs
Abd: Soft, non distended, mildly tender across the lower abdomen
Rectal: No anal fissures or hemorrhoids noted, small amount of blood mixed with stool noted around the anus; patient refused internal digital rectal exam
Neuro: Cranial nerves grossly intact, speech fluid, motor and sensory grossly intact in the leg
Extremities: No edema in extremities, left upper extremity fistula noted
Scores
Heart Failure Risk
Heart Failure Risk Score: Not Applicable
Heart Score for Chest Pain Patients
STEMI patient?: Not applicable
Withdrawal Assessment of Alcohol
Withdrawal Assessment Completed?: Not applicable
Sepsis
Sepsis Screening
Sepsis Assessment: Severe Sepsis
Sepsis Screening: Lactate >/=4mmol/L
Sepsis Screen
Sepsis Screen: Severe Sepsis
Date: 05/01/25
Time: 19:56
Course
Orders/Labs/Results
Orders:
Orders
05/01/25 15:13
Complete Blood Count/With Diff Urgent
Comprehensive Metabolic Panel Urgent
Lipase Urgent
05/01/25 16:42
Iohexol [Omnipaque] See Protocol PO NOW STA
05/01/25 16:51
Stool Culture Urgent
NICK Source: Feces/Stool
Specimen Description:
05/01/25 16:53
Type+Screen Urgent
Lactate Level [Lactic Acid] Urgent
Blood Culture Q30M
NICK Source: Blood/Venous
Specimen Description:
05/01/25 16:57
Blood Culture Q30M
NICK Source: Blood/Venous
Specimen Description:
05/01/25 17:01
CT Abd/pelvis W Iv Cont Urgent
Comment:
Reason For Exam: abd pain, rectal bleeding
05/01/25 17:48
Piperacillin/Tazo 3.375 Gram [Zosyn] 3.375 gram in 50 ml IV NOW
05/01/25 17:49
0.9% Sodium Chloride 250 ml [Nss] 250 ml IV BOLUS
05/01/25 19:55
0.9% Sodium Chloride 250 ml [Nss] 250 ml IV BOLUS
Ondansetron Injectable [Zofran] 4 mg IV NOW STA
Abnormal Lab Results
05/01/25 05/01/25
15:13 16:53
WBC 17.8 H 10^3/uL
(4.8-10.8)
RBC 3.69 L 10^6/uL
(4.70-6.10)
Hgb 12.3 L g/dL
(13.0-18.0)
Hct 35.9 L %
(39.0-52.0)
MCV 97.3 H fL
(80.0-94.0)
MCH 33.3 H pg
(27.0-31.0)
RDW 14.9 H %
(11.5-14.5)
MPV 11.4 H fL
(7.4-10.4)
Abs Immat Gran (auto) 0.1 H 10^3/uL
(0-0.05)
Absolute Neuts (auto) 13.3 H 10^3/uL
(1.4-6.5)
Absolute Monos (auto) 1.3 H 10^3/uL
(0.1-0.6)
Lymphocytes % 16.3 L %
(20.5-51.1)
Chloride 92 L mmol/L
(98-107)
BUN 26 H mg/dl
(9-20)
Creatinine 6.8 H* mg/dL
(0.7-1.3)
Glucose 151 H mg/dl
(70-99)
Lactic Acid 4.0 H* mmol/L
(0.7-2.0)
Alkaline Phosphatase 141 H U/L
(38-126)
05/01/25 15:13
05/01/25 15:13
Vital Signs
Initial and Last Documented VS:
Initial Vital Signs
Temp Pulse Resp Pulse Ox
36.7 C 119 22 99
05/01/25 14:57 05/01/25 14:57 05/01/25 14:57 05/01/25 14:57
Last Documented Vital Signs
Temp Pulse Resp BP Pulse Ox
36.7 C 104 15 80/59 99
05/01/25 14:57 05/01/25 19:47 05/01/25 19:47 05/01/25 19:47 05/01/25 19:47
MDM/Problems Addressed
Differential Diagnosis Includes:
Colitis, diverticulitis, proctitis, malignancy
MDM/Problems Addressed:
59-year-old male presents for evaluation of lower abdominal pains with bloody diarrhea since last night. Soft blood pressure 88/51 in triage�improved to 116/59 on my assessment. He does have some mild tachycardia. No fever here. Physical exam as
noted. He had lab work sent in triage including a CBC which showed a marked leukocytosis to 17.8. He has hemoglobin of 12.3 which is stable. No thrombocytopenia. Chemistry no significant electrolyte derangements, known ESRD noted. Added type
and screen. Added lactate and blood cultures. Will check CT abdomen pelvis. Will monitor for additional bleeding. Send stool studies if able. Reassess after the above.
Patient's lactate came back elevated at 4.0. Fortunately blood pressure is within acceptable range. He does have continued mild tachycardia. He is having minimal pain�low suspicion that this is ischemic colitis. CT imaging is pending. Will plan
to cover with empiric antibiotics with suspected source as colitis given that he has multiple SIRS criteria and elevated lactate with low initial blood pressure. Will provide some gentle fluids given his history of ESRD we will hold off on 30 cc/kg
bolus in favor of slow resuscitation with frequent reassessments. Anticipate admission.
CT shows signs consistent with colitis. No evidence of pneumatosis or perforation. Pain is relatively mild low suspicion for an ischemic colitis but will need to trend labs. I did cover with antibiotics empirically. Continue fluid resuscitation
cautiously given renal failure. Will admit for continued management. Discussed case with hospitalist.
Chronic conditions affecting care:
ESRD
*Radiology
Radiology exam reviewed: radiology read reviewed
*Pulse Oximetry
SaO2: 99
Oxygen Mode of Delivery: Room air
Patient hypoxic: no (99%)
*Critical Care Note
Total Time (30-74mins, 75-104mins- exclusive of procedures): Not Applicable
Data Reviewed
Source: patient and records
Patient Management
Discussion with other providers: Hospitalist (Discussed with hospitalist)
Escalation/DeEscalation of care consider admission/obs:
Admission indicated
ED Attending Note
-
Portions of this chart may have been created with voice recognition software.� Occasional wrong word or��sound alike� substitutions may have occurred due to the inherent limitations of voice recognition software.
Discharge Plan
Departure
Patient Disposition: Admit
Date of Disposition: 05/01/25
Time of Disposition: 19:52
Admit to doctor: Sea
Presentation/result/management discussed w/ accepting MD/DO: Hospitalist
Discharge Problem:
Sepsis, Colitis
Prescriptions:
No Action
atorvastatin 80 MG tablet
80 mg PO HS
gabapentin 300 MG capsule
600 mg PO BID
cholecalciferol (vitamin D3) 1,000 UNITS tablet
1,000 units PO DAILY
aspirin 81 mg Tablet,Delayed Release (Dr/Ec)
81 mg PO DAILY
Velphoro 500 mg tablet,chewable
500 mg PO MEALS
insulin aspart U-100 [Novolog U-100 Insulin aspart] 100 unit/mL Solution
5 unit SC AC
midodrine 10 mg Tablet
20 mg PO MOWEFR
insulin glargine [Lantus Solostar U-100 Insulin] 100 unit/mL (3 mL) Insulin Pen
8 unit SC HS
icosapent ethyl 1 gram capsule
1 g PO BID
carvedilol 12.5 mg tablet
12.5 mg PO BID
amoxicillin-pot clavulanate 875-125 mg tablet
1 tab PO BID Qty: 20 0RF
Referrals:
UNKNOWN - PT DOES,NOT KNOW [Unknown Provider]
Interventions
Interventions:
*Risk Screen - Suicide Last Done: 05/01/25 15:00
*General Assessment Last Done: 05/01/25 15:00
*Neglect/Abuse Screening Last Done: 05/01/25 15:00
*ED- Fall Risk Assessment Last Done: 05/01/25 16:23
*ED COVID-19 Vaccine History Last Done: 05/01/25 15:00
*ED Influenza Vaccine History Last Done: 05/01/25 15:00
EU-Fwsaro-Ohgysuelvv Assessment Last Done: 05/01/25 16:32
ED- Cardiac Assessment Last Done: 05/01/25 16:32
ED- Pulmonary Assessment Last Done: 05/01/25 16:32
Discharge Date and Time
Print Language: TAMAZIGHT
[2025-05-01] MEDS: NSS 250 IV ×2 (18:05→20:00)
[2025-05-01] MEDS: ZOSYN 50 IV (18:05)
[2025-05-01] MEDS: ZOFRAN 4 MG IV (20:00)
--- NOTE | 2025-05-01 20:30 | HPS.HSE ---
Family Physician
-
Family Physician: Troy Husain
Chief Complaint
-
bloody diarrhea
History of Present Illness
59-year-old male past medical history of ESRD on hemodialysis due to ischemic nephropathy, CAD status post CABG, type 2 diabetes, peripheral neuropathy, hypertension, CVA, smoking history, abdominal aortic aneurysm repair at [facility], presenting
for rectal bleeding and abdominal discomfort. He was finishing his dialysis session last night he had 15 minutes of when he felt the urge to go to the bathroom. He went to the bathroom and had abdominal cramping and painful bloody bowel movement.
He was up all night having multiple episodes of diarrhea mixed with blood and mucus. He says primary care physician who sent him to the emergency room. He has mild pain in the lower abdomen. He has some mild rectal pain. He denies nausea or
vomiting. Denies shortness of breath or dizziness. He denies any fevers or chills.
Medical History
Past Medical History
Past Medical History: Reports Other (ESRD on hemodialysis due to ischemic nephropathy, CAD status post CABG, type 2 diabetes, peripheral neuropathy, hypertension, CVA, smoking history, abdominal aortic aneurysm repair at [facility],)
Past Surgical History: Reports Other (CABG of LAD February 07, 2022; PTCA with stent), Orthopedic (Left knee) and Other (AAA repair December 2019))
Social History
Tobacco: Non-smoker
Alcohol: None
Drug: None
Family History
Family History: Not pertinent
Allergies / Home Medications
Allergies reflects when Allergies were last updated in [facility].
Home Medications with original date entered in [facility]
Allergy/Medication List:
Allergies
Allergy/AdvReac Type Severity Reaction Status Date / Time
No Known Allergies Allergy Verified 05/01/25 15:01
Home Medications
atorvastatin 80 mg tablet 80 mg PO HS High cholesterol 11/25/19
cholecalciferol (vitamin D3) 25 mcg (1,000 unit) tablet 1,000 units PO DAILY Supplement 01/24/22
gabapentin 300 mg capsule 600 mg PO BID Neurological Condition 01/24/22
aspirin 81 mg tablet,delayed release 81 mg PO DAILY Blood clot prevention/tx 03/21/22
sucroferric oxyhydroxide 500 mg chewable tablet (Velphoro) 500 mg PO MEALS Kidney Disease 12/31/22
insulin aspart U-100 100 unit/mL subcutaneous solution (Novolog U-100 Insulin aspart) 5 unit SC AC Diabetes 08/02/23
carvedilol 12.5 mg tablet 12.5 mg PO BID Heart disease/condition 11/26/24
icosapent ethyl 1 gram capsule 1 g PO BID 11/26/24
insulin glargine 100 unit/mL (3 mL) subcutaneous pen (Lantus Solostar U-100 Insulin) 8 unit SC HS 11/26/24
midodrine 10 mg tablet 20 mg PO MOWEFR before diaylsis 11/26/24
amoxicillin 875 mg-potassium clavulanate 125 mg tablet 1 tab PO BID #20 tabs 11/27/24
Review of Systems
-
History Source: Patient
A 12 point ROS was completed and negative except as noted: Yes
Constitutional: Reports No Symptoms
EENT: Reports No Symptoms
Respiratory: Reports No Symptoms
Cardiac: Reports No Symptoms
Abdomen/GI: Reports See HPI
: Reports No Symptoms
Musculoskeletal: Reports No Symptoms
Skin: Reports No Symptoms
Neurological: Reports No Symptoms
Endocrine: Reports No Symptoms
Hematologic/Lymphatic: Reports No Symptoms
Psych: Reports No Symptoms
Physical Exam
Vital Signs
Vital Signs
Temp Pulse Resp BP Pulse Ox
98.1 F 108 19 80/59 97
05/01/25 14:57 05/01/25 20:00 05/01/25 20:00 05/01/25 19:47 05/01/25 20:00
Physical Exam
General: Well Developed, Well Nourished and No Apparent Distress
HEENT: NormoCephalic, Moist mucous membranes and Atraumatic
Respiratory: Clear
Cardiac: S1/S2 and Regular Rhythm; No Murmur or Rub
GI: Soft, Non Distended, Normal Bowel Sounds and Tender; No Organomegaly
Rectal: Deferred by Provider
Musculoskeletal: No Clubbing, No Cyanosis and No Edema
Skin: No Rash
Neuro: Nonfocal/grossly intact
Laboratory Results
-
05/01/25 15:13
05/01/25 15:13
Laboratory Results
Lactic Acid 4.0 mmol/L (0.7-2.0) H* 05/01/25 16:53
Total Bilirubin 0.8 mg/dl (0.2-1.3) 05/01/25 15:13
AST 24 U/L (17-59) 05/01/25 15:13
ALT 24 U/L (0-50) 05/01/25 15:13
Alkaline Phosphatase 141 U/L (38-126) H 05/01/25 15:13
Lipase 270 U/L (23-300) 05/01/25 15:13
Data Reviewed
-
Lab Data: Labs Reviewed by me
Old Records: Reviewed
Impression/Plan
-
IMPRESSION:
PLAN:
# Sepsis (leukocytosis, tachycardia, hypotension) secondary to acute colitis with hematochezia
-Leukocytosis 14, lactic acid of 4
- CT abdomen pelvis shows findings suspicious for mild nonspecific colitis involving the descending colon and rectosigmoid colon
- N.p.o.
- IV fluids given, continue gentle IV fluids
-Stool studies, C. difficile, blood cultures
- Zosyn
- Hold Coreg
ESRD on hemodialysis due to ischemic nephropathy
- Continue midodrine
- Nephrology consulted for routine dialysis tomorrow
Anemia of chronic renal disease
- Hemoglobin stable
CAD status post CABG
- hold aspirin
-continue statin
Type 2 diabetes
- Hold Lantus
- Insulin sliding scale
History of diabetic neuropathy
- Hold gabapentin
Essential hypertension
History of CVA
History of smoking
Abdominal aortic aneurysm status postrepair at [facility]
Full code
DVT prophylaxis�heparin
N.p.o.
--- NOTE | 2025-05-01 23:36 | PTCARENOTE ---
received patient from ED. Patient AAOx3. Patient very uncooperative and rude with staff. Patient refusing most medications and IV fluids. Patient has low bp and was getting up disconnecting himself from monitor and walking into the bathroom after
this RN explained how this is a safety issue with how vital signs and current illness is presenting. Patient refused to listen or cooperate. Nursing supervisor wash house at patient bedside to talk about rules of the unit. DUST COLLECTOR also at bedside to talk to
patient. Patient now has bedside commode that he agreed to use. continuing to monitor. call guadalupe in reach.
[2025-05-02] VITALS (37 sets, daily range): BP systolic 82–117; BP diastolic 54–86
--- NOTE | 2025-05-02 01:20 | W.PN.UPDATE ---
Update Note
Progress Note Update
Reported by the nursing staff that the Patient is hypotensive with sbp 80s, refusing IV fluid as dialysis patient. Discussed with the patient and the admitting physician, plan to start pressers if bp didn't improve with midodrine. I spoke to the
patient at bed side he refused to get pressors and he want to get fluids and mididrone first and if not working to try the pressors as needed.
[2025-05-02] MEDS: NSS 250 IV (01:27)
[2025-05-02] MEDS: ZOSYN 50 IV ×3 (04:59→21:35)
[2025-05-02 05:49] LABS: ALT (SGPT) 18 U/L (0-50); AST (SGOT) 18 U/L (17-59); Albumin 4.0 g/dl (3.5-5.0); Alkaline Phosphatase 113 U/L (38-126); Blood Urea Nitrogen 37 mg/dl (9-20); Calcium 9.3 mg/dl (8.4-10.2); Carbon Dioxide 23 mmol/L (22-30); Chloride 97 mmol/L (98-107); Glucose 126 mg/dl (70-99); Potassium 4.9 mmol/L (3.5-5.1); Sodium 133 mmol/L (135-145); Total Protein 6.5 g/dl (6.3-8.2); eGFR 7.11
[2025-05-02 06:59] LABS: Hematocrit 32.2 % (39.0-52.0); Hemoglobin 10.8 g/dL (13.0-18.0); Mean Corp Hgb Conc. 33.5 g/dL (33.0-37.0); Mean Corpuscular Volume 97.0 fL (80.0-94.0); Nucleated Red Blood Cells % 0 % (-); Platelet Count 176 10^3/uL (130-400); Red Cell Dist. Width 14.8 % (11.5-14.5)
--- NOTE | 2025-05-02 09:28 | PTCARENOTE ---
Assumed care of patient this morning. On first encounter after introducing myself, patient states 'why is it almost 9 AM and I have not seen a doctor yet, I need to know the plan.' Patient worried about BP because it needs to be 'brought up before
dialysis', however patient refusing maintenance fluids overnight and still refusing them this morning. Pt wants his Midodrine scheduled for dialysis. BP currently 80s systolic, MAP >65. All concerns TT to , who also came to bedside and spoke
with patient. Pt also c/o of not eating for 2 days, advised he could have clear liquids until GI sees patient but patient states 'I cannot have all liquids.'
Pt due for EKG, lab work, MRSA swab, ect. Pt agreeable with all interventions this morning.
Assessment, care and VS as charted.
--- NOTE | 2025-05-02 09:45 | W.PN.HOSP.TC ---
Today's Communication/Plan
-
CL diet
provide midodrine 10mg x1
vasopressors if SBP not improved
maintain on abx
collect stool sample when possible
Remains at risk of further complication if declines rx
See note
Assessment / Plan
Assessment / Plan
CT a/p
Findings suspicious for mild nonspecific colitis involving the descending colon and rectosigmoid colon. No evidence of pneumatosis. No perforation or abscess. No bowel obstruction. The appendix is normal.
Cholelithiasis.

# Sepsis - POA
Chronic hypotension confounded by possible septic shock
-Leukocytosis 18k, lactic acid of 4 at admission
-Patient declined to be given IVF with ESRD, did not get 30ml/kg IVF bolus.
-Patient declined to be started on vasopressors and house TOP LIFT SCOURER has evaluated patient in the night
-Discussed patient's decision to decline life saving treatment , will provide 10mg midodrine dose now.
# Acute colitis
Infectious vs ischemic vs other
Blood in stool
Acute blood loss Anemia with anemia of chronic renal disease
- reported some blood in the stool in ER, minor blood in stool reported by RN as well
- Hbg down from ~ 12.5 > 10.5, continue monitoring
- CT a/p showing possible colitis involving descending colon and rectosigmoid colon.
- have h/o of AAA repair, CT abd images reviewed personally and have significant calcification of SMA/JULIO segment at origin
- Stool studied pending at this point
- On empiric zosyn
- Discussed with GI and allowed to be started on CL diet for now
# ESRD on hemodialysis
h/o ischemic nephropathy
- given 10mg midodrine dose in AM
- Discussed with nephro and will attempt HD if BP allows
# CAD status post CABG
- hold aspirin
- continue statin
# Type 2 diabetes
- Hold Lantus
- Insulin sliding scale
#History of diabetic neuropathy
- Hold gabapentin
Essential hypertension
History of CVA
History of smoking
Abdominal aortic aneurysm status postrepair at [place]
Full code
DVT prophylaxis�heparin
05/02 Patient have declined life saving measures for sepsis/septic shock in night. Patient not happy for not being fed and not been seen earlier. All appropriate treatment have been intiated from ER and patient is dictating treatment regimen, putting
himself at risk. I have clarified this with the patient. Patient willing to start vasopressors if needed. Discussed with nephrology global transportation manager and patient BP has been on lower side for last few months. Patient will be given midodrine dose first and if
BP not improved will be started on vasopressors. I have communicated this to patient.
Total time spent : 55 mins
Anticipated Discharge: > 48 hours
Subjective/Interval History
-
Date of Service: May 02, 2025
patient have declined IVF and later pressors in the night despite for concern of septic shock
demanded to be fed
denies of abd pain/ nausea / vomiting
Objective Data
-
Labs:
Laboratory Results
05/02/25
05:10
WBC 14.8 H
Hgb 10.8 L
Hct 32.2 L
Plt Count 176
Sodium 133 L
Potassium 4.9
Chloride 97 L
Carbon Dioxide 23
BUN 37 H
Creatinine 8.0 H*
Glucose 126 H
Calcium 9.3
Total Bilirubin 0.6
AST 18
ALT 18
Alkaline Phosphatase 113
Vital Signs:
Vital Signs
Temp Pulse Resp BP Pulse Ox
98.0 F 87 11 85/74 91
05/01/25 22:51 05/02/25 09:10 05/01/25 21:30 05/02/25 09:10 05/02/25 08:00
Review of Systems
-
Respiratory: Reports No Symptoms
Cardiac: Reports No Symptoms
Abdomen/GI: Denies Abdominal Pain, Nausea or Vomiting
Physical Exam
-
General: Comfortable
HEENT: Negative Oxygen
GI: Soft, Nontender, Nondistended and Normal Bowel Sounds
Musculoskeletal: No Edema
Neuro: Awake, Alert and Oriented
Psych: Agitated
--- NOTE | 2025-05-02 09:55 | CM ---
Initial Assessment Completed By IFEANYI Rogers.
Patient lives independently with all ADL's in a 2 Story House with 2 steps to enter and a full flight inside.
PCP: Dr. Troy Husain
Pharmacy: [facility] in [place]
Patient has transportation home. RN stated that he is on IV antibiotic so may need IV for discharge or may just go on PO.
PLAN: Home No Needs vs. IV Infusion
[2025-05-02] MEDS: NOVOLOG FLEXPEN-LOW RESISTANCE 1 UNITS SC ×2 (09:59→12:11)
--- NOTE | 2025-05-02 10:00 | W.CON.NEPH ---
Consultation
-
Date/Time Consultation Requested: 05/01/25 2255
Date/Time Consultation Performed: 05/01/25 1000
Requesting Provider: Jasmeet Bee
Performing Provider: Rema Spence
Reason for Consultation: ESRD
Medical History
-
Chief Complaint: bloody diarrhea
History of Present Illness:
59-year-old male past medical history of ESRD on hemodialysis due to ischemic nephropathy, HTN on coreg but relative hypotension on HD hence takes midodrine pre HD, CAD status post CABG, type 2 diabetes on insulin, peripheral neuropathy, CVA,
smoking history, abdominal aortic aneurysm repair at [place], presenting for rectal bleeding and abdominal discomfort on 05/01. He was finishing his dialysis session last Monday and towards end of it he had abdominal cramping with painful
bloody bowel movement.
He was up all night having multiple episodes of diarrhea mixed with blood and mucus. He saw PCP yesterday and refer him to ER. He reports has many BMs through night. HIs BPs were low but refused IVF or pressor with fear of vol overload. CT scan
shows non specific mild descending, rectosigmoid colitis. He still with mild pain in the lower abdomen. He denies nausea or vomiting. Denies shortness of breath or dizziness. He denies any fevers or chills. No sick contacts.
Past Medical History
ESRD on hemodialysis due to ischemic nephropathy, CAD status post CABG, type 2 diabetes, peripheral neuropathy, hypertension, CVA, smoking history, abdominal aortic aneurysm repair at [place]
Past Surgical History: Other (CABG of LAD February 07, 2022; PTCA with stent), Orthopedic (Left knee) and Other (AAA repair December 2019)))
Social History
Tobacco: Smoker
Alcohol: None
Drug: None
Personal:
Living: With Family
Family History
Family History: Not Pertinent
Allergies / Home Medications
Allergy/AdvReac Type Severity Reaction Status Date / Time
No Known Allergies Allergy Verified 05/01/25 15:01
�Medication �Instructions �Recorded �Confirmed �Type
atorvastatin 80 mg tablet 80 mg PO HS High cholesterol 11/25/19 11/26/24 History
cholecalciferol (vitamin D3) 25 1,000 units PO DAILY Supplement 01/24/22 11/26/24 History
mcg (1,000 unit) tablet
gabapentin 300 mg capsule 600 mg PO BID Neurological 01/24/22 11/26/24 History
Condition
aspirin 81 mg tablet,delayed 81 mg PO DAILY Blood clot 03/21/22 11/26/24 History
release prevention/tx
sucroferric oxyhydroxide 500 mg 500 mg PO MEALS Kidney Disease 12/31/22 11/26/24 History
chewable tablet (Velphoro)
insulin aspart U-100 100 unit/mL 5 unit SC AC Diabetes 08/02/23 11/26/24 History
subcutaneous solution (Novolog
U-100 Insulin aspart)
carvedilol 12.5 mg tablet 12.5 mg PO BID Heart 11/26/24 11/26/24 History
disease/condition
icosapent ethyl 1 gram capsule 1 g PO BID 11/26/24 11/26/24 History
insulin glargine 100 unit/mL (3 8 unit SC HS 11/26/24 11/26/24 History
mL) subcutaneous pen (Lantus
Solostar U-100 Insulin)
midodrine 10 mg tablet 20 mg PO MOWEFR before diaylsis 11/26/24 11/26/24 History
amoxicillin 875 mg-potassium 1 tab PO BID #20 tabs 11/27/24 Rx
clavulanate 125 mg tablet
Review of Systems
-
All other systems: Negative unless noted
Physical Exam
Vital Signs
Vital Signs
Temp Pulse Resp BP Pulse Ox
97.8 F 84 11 103/63 97
05/02/25 07:36 05/02/25 11:00 05/01/25 21:30 05/02/25 11:00 05/02/25 11:00
Lab Results
WBC 14.8 10^3/uL (4.8-10.8) H 05/02/25 05:10
RBC 3.32 10^6/uL (4.70-6.10) L 05/02/25 05:10
Hgb 10.8 g/dL (13.0-18.0) L 05/02/25 05:10
Hct 32.2 % (39.0-52.0) L 05/02/25 05:10
Plt Count 176 10^3/uL (130-400) 05/02/25 05:10
Sodium 133 mmol/L (135-145) L 05/02/25 05:10
Potassium 4.9 mmol/L (3.5-5.1) 05/02/25 05:10
Chloride 97 mmol/L (98-107) L 05/02/25 05:10
Carbon Dioxide 23 mmol/L (22-30) 05/02/25 05:10
BUN 37 mg/dl (9-20) H 05/02/25 05:10
Creatinine 8.0 mg/dL (0.7-1.3) H* 05/02/25 05:10
eGFR 7.11 05/02/25 05:10
Glucose 126 mg/dl (70-99) H 05/02/25 05:10
Calcium 9.3 mg/dl (8.4-10.2) 05/02/25 05:10
Albumin 4.0 g/dl (3.5-5.0) 05/02/25 05:10
Physical Exam
General: Awake, Alert, Oriented, AOx3, No Distress and Nontoxic
HEENT: EOMI, Anicteric, Conjunctivae Clear, Facial Symmetry and No JVD
Respiratory: Clear, Normal Excursion and Nonlabored Respirations
Cardiac: S1/S2, Regular Rate/Rhythm and No Edema
Breast: Deferred by me
Abdomen: Soft, Nontender and Nondistended
Musculoskeletal: No Cyanosis and No Edema
Skin: No Rash
Neuro: Nonfocal/Grossly Intact
Psych: Insight/judgement good and Appropriate
Assessment/Plan
-
IMP:
Sepsis - POA
Acute colitis
ESRD-due to ischemic nephropathy - HD initiated December 2021-MWF at [facility]
IDDM
Peripheral neuropathy from diabetes
CAD with prior stenting and CABG
History CVA
HLD
Active smoker on presentation
AAA repair 2019 at [place]
Secondary hyperparathyroidism
Anemia of CKD
Left UE AVF
Plan:
A/w bloody diarrhea , CT noted colitis-GI consulted
plan HD today with minimal UF since has poor intake too
hypotension-lately requiring high dose midodrine with HD too
ok gentle IVF and pressors if BP do not improve with midodrine
reviewed with pt about FR 40ounce/ while having diarrhea
resume phos binder when starts solid diet
d/w pt and nursing
d/w primary
--- NOTE | 2025-05-02 10:01 | CON.GI ---
Addendum entered and electronically signed by Jacy Briones MD 05/02/25 20:06:
The patient was seen and examined by me independently in collaboration with the nurse practitioner.
Past medical history/social history/medications/allergies/family history reviewed.
Lab data and imaging data reviewed.
59-year-old male past medical history as below including dialysis, chronic hypotension presenting with diarrhea and rectal bleeding. This started on Monday at dialysis. He would have a bowel movement every 10 to 15 minutes. He also had severe
rectal pain. He denies any true abdominal tenderness although stated when his doctor evaluated in the office and palpated his abdomen he felt some tenderness I reviewed his primary note yesterday who recommended he go to the emergency room at that
time his blood pressure dropped to 64 sitting up. He was found to have hemoglobin 10.7 which is around his baseline, white blood cell count as high as 17.8 on admission, CT scan with findings suspicious for mild nonspecific colitis in the
descending colon and rectosigmoid. He denies antibiotics, fevers chills, unusual foods, sick contacts, travel.
Differential diagnosis includes but not limited to infection, diverticular bleed, ischemic colitis although I would expect to have more pain that he is currently having, malignancy. I do think that he has an anal fissure as he had a lot of rectal
pain. When I examined him, he was in a lot of pain on his rectal area. I did not see a clear fissure.
Of note, his bleeding has stopped and his diarrhea seems to have slowed down and he is only having 2 or 3 bowel movements a day at this juncture.
At this time, recommend follow-up the remainder of the stool studies that are pending. I also recommend to continue empiric antibiotics. Clear liquid diet. Trend hemoglobin. For the possible anal fissure, I have reached out to the pharmacist and
we have ordered nitroglycerin and lidocaine cream to be applied. I discussed with the patient the possibility of doing a flex sig versus colonoscopy on Monday which he felt was not necessary given his improvement of the symptoms. I explained we do
not have the cause of the rectal bleeding. He said he would consider doing it outpatient. He has never had a colonoscopy.
D/w hospitalist. Further recommendations pending clinical course.
Original Note:
Consultation
-
Date/Time Consultation Requested: 05/02/25805
Date/Time Consultation Performed: 05/02/25944
Requesting Provider: Dr. Weinstein
Performing Provider: Dr. Briones/SHANA Lara
Reason for Consultation: colitis
Medical History
Chief Complaint / HPI
Chief Complaint: rectal bleeding
History of Present Illness:
59-year-old male with past medical history of diabetes, hyperlipidemia, CAD status post CABG, end-stage renal disease on hemodialysis due to ischemic nephropathy on Fridays, chronic hypotension on midodrine, peripheral neuropathy,
hypertension, CVA, chronic smoking, abdominal aortic aneurysm repair who presents to the emergency room with acute onset of diarrhea and rectal bleeding. Asked to evaluate for colitis. The patient states that over the summer he has had increased
hypotension associated with his dialysis sessions. He states that they had to increase his midodrine. He does state for the past 2 weeks he has had episodes during dialysis where when he reaches the end of his dialysis session he has a pain in his
rectum. He does state that on Monday he had to end his dialysis session 15 minutes early secondary to this pain/pressure in his rectum. He did have hypotension during that episode. He did get up defecate and it was a normal brown bowel
movement. He does state that later that evening around 11 PM he started having multiple episodes of brown diarrhea. He states that then he started having bright red blood per rectum mixed within the diarrhea and then proceeded to have multiple
episodes of rectal bleeding. He went to his PCP the following day for follow-up. He had some tenderness in the suprapubic area on exam per his report. And because of persistence of bright red blood per rectum mixed with stool he was instructed to
go to the emergency room for further evaluation. We are asked to evaluate for the same. The patient has never had an endoscopy or colonoscopy before. He does take aspirin 81 mg daily. He denies any other NSAIDs. He is not on any other
anticoagulation. He does continue to smoke. He does not drink any alcohol. He did just give a stool sample, I witnessed there was some light green liquidy bowel movement. No blood obvious on current specimen. This will be sent out for testing.
He did state that he had some bright red blood on tissue earlier. He denies any fevers, chills, nausea, vomiting. He states that his 1 medication Velphoro causes dark stools. He denies any recent travel, recent antibiotic use, sick contacts, raw,
spoiled foods or undercooked foods. No shellfish.
Past Medical History
Past Medical History: Other (Diabetes, hyperlipidemia, CAD, end-stage renal disease, ischemic nephropathy, chronic hypotension, peripheral neuropathy, hypertension, CVA, abdominal aortic aneurysm status post repair)
Past Surgical History: Other (Left AV fistula, CABG, PTCA, left knee surgery, AAA repair)
Social History
Tobacco: Smoker
Alcohol: None
Drug: None
Personal:
Living: With Family
Family History
Family History: Other (No family history of gastrointestinal malignancy or IBD)
Allergies / Home Medications
Allergy/AdvReac Type Severity Reaction Status Date / Time
No Known Allergies Allergy Verified 05/01/25 15:01
�Medication �Instructions �Recorded
atorvastatin 80 mg tablet 80 mg PO HS High cholesterol 11/25/19
cholecalciferol (vitamin D3) 25 1,000 units PO DAILY Supplement 01/24/22
mcg (1,000 unit) tablet
gabapentin 300 mg capsule 600 mg PO BID Neurological 01/24/22
Condition
aspirin 81 mg tablet,delayed 81 mg PO DAILY Blood clot 03/21/22
release prevention/tx
sucroferric oxyhydroxide 500 mg 500 mg PO MEALS Kidney Disease 12/31/22
chewable tablet (Velphoro)
insulin aspart U-100 100 unit/mL 5 unit SC AC Diabetes 08/02/23
subcutaneous solution (Novolog
U-100 Insulin aspart)
carvedilol 12.5 mg tablet 12.5 mg PO BID Heart 11/26/24
disease/condition
icosapent ethyl 1 gram capsule 1 g PO BID 11/26/24
insulin glargine 100 unit/mL (3 8 unit SC HS 11/26/24
mL) subcutaneous pen (Lantus
Solostar U-100 Insulin)
midodrine 10 mg tablet 20 mg PO MOWEFR before diaylsis 11/26/24
amoxicillin 875 mg-potassium 1 tab PO BID #20 tabs 11/27/24
clavulanate 125 mg tablet
Review of Systems
-
All other systems: A 12 pt ROS was Negative except as stated above in HPI
Vital Signs
Temp Pulse Resp BP Pulse Ox
98.0 F 86 11 85/74 91
05/01/25 22:51 05/02/25 09:53 05/01/25 21:30 05/02/25 09:53 05/02/25 08:00
Physical Exam
Exam
General: No Apparent Distress
HEENT: Anicteric
Respiratory: Clear (Anterior)
Cardiac: Regular Rhythm
GI: Soft, Non Distended, Normal Bowel Sounds and Tender (Slight suprapubic tenderness)
Rectal: Other (No stool in rectal vault, no obvious external hemorrhoids, pain with rectal exam, no obvious palpable masses, patient only tolerated limited rectal exam secondary to discomfort)
Skin: Warm and Dry
Neuro: AO x 3
Psych: Calm
Results
WBC 14.8 10^3/uL (4.8-10.8) H 05/02/25 05:10
Hgb 10.8 g/dL (13.0-18.0) L 05/02/25 05:10
Hct 32.2 % (39.0-52.0) L 05/02/25 05:10
MCV 97.0 fL (80.0-94.0) H 05/02/25 05:10
Plt Count 176 10^3/uL (130-400) 05/02/25 05:10
Absolute Neuts (auto) 10.3 10^3/uL (1.4-6.5) H 05/02/25 05:10
Sodium 133 mmol/L (135-145) L 05/02/25 05:10
Potassium 4.9 mmol/L (3.5-5.1) 05/02/25 05:10
Chloride 97 mmol/L (98-107) L 05/02/25 05:10
Carbon Dioxide 23 mmol/L (22-30) 05/02/25 05:10
BUN 37 mg/dl (9-20) H 05/02/25 05:10
Creatinine 8.0 mg/dL (0.7-1.3) H* 05/02/25 05:10
Calcium 9.3 mg/dl (8.4-10.2) 05/02/25 05:10
Total Bilirubin 0.6 mg/dl (0.2-1.3) 05/02/25 05:10
AST 18 U/L (17-59) 05/02/25 05:10
ALT 18 U/L (0-50) 05/02/25 05:10
Alkaline Phosphatase 113 U/L (38-126) 05/02/25 05:10
Lipase 270 U/L (23-300) 05/01/25 15:13
Diagnostic Image Results:
CT abdomen and pelvis with IV contrast:
Findings suspicious for mild nonspecific colitis involving the descending colon and rectosigmoid colon. No evidence of pneumatosis. No perforation or abscess. No bowel obstruction. The appendix is normal.
Cholelithiasis.
Prior GI Procedures:
EGD: Never
Colonoscopy: Never
Assessment / Plan
-
59-year-old male with past medical history of diabetes, hyperlipidemia, CAD status post CABG, end-stage renal disease on hemodialysis due to ischemic nephropathy on Fridays, chronic hypotension on midodrine, peripheral neuropathy,
hypertension, CVA, chronic smoking, abdominal aortic aneurysm repair who presents to the emergency room with acute onset of diarrhea and rectal bleeding. Asked to evaluate for colitis. Patient has been having a couple week history of rectal pain
at end of dialysis sessions. Has also had increase in hypotension during dialysis as well over the summer requiring increased doses of midodrine per patient. Had to discontinue dialysis session on Monday early secondary to rectal pain. Had
hypotension. Later that night developed acute onset of diarrhea first round followed by bloody bowel movements. Now this morning with light green diarrhea. Rectal exam with pain, no obvious hemorrhoids externally. No obvious fissure on the
outside. Initially WBC 17.8 now down to 14.8, hemoglobin 10.8 down from 12.3, sodium 133, potassium 4.9, BUN 37, creatinine 0.8, lactic acid 2.4 down from 3.3, total bilirubin 0.6, AST 18, ALT 18, alk phos 113, CT of the abdomen and pelvis with IV
contrast shows mild circumferential wall thickening and soft tissue stranding associated with the descending and rectosigmoid colon. Patient was placed on Zosyn. Mild tenderness only in the suprapubic area. Has been afebrile, BP min 80/59. Blood
cultures pending. Stool cultures pending.
Impression:
Colitis
Rectal bleeding
Rectal pain during dialysis
End-stage renal disease on hemodialysis Monday
Diabetes
CAD
Plan:
- Await stool studies
-Await blood culture
-Okay for clear liquids, no red
-Trend labs
-Discussed with patient, he has never had a colonoscopy before. May want to even consider flex sig at least
-Continue antibiotics
--- Patient did decline having IV fluids and pressors in the middle the night despite concerns of septic shock.
--- Very adamant about starting diet, discussed that is important to start with clear liquids at first. Patient states that he is on a fluid restriction of 20 ounces daily.
-Further recommendations to be forthcoming
-
-
Thank you for consultation and allowing me to participate in the patient's care. Please call the cardiac sonographer GI physician during the after hours with any questions or concerns.
[2025-05-02 10:05] LABS: Glucose - Point of Care 162 mg/dl (70-99)
[2025-05-02 10:37] LABS: Glycohemoglobin (HgbA1c) 8.3 % (4.0-5.6)
[2025-05-02 12:06] LABS: Glucose - Point of Care 162 mg/dl (70-99)
[2025-05-02 13:42] LABS: COVID-19 Antigen Negative (Negative)
--- NOTE | 2025-05-02 14:51 | W.PN.NEPH.HD ---
Assessment
-
pt seen during HD
vitals stable post midodrine
UF only to get to EDW
monitor GIB
AVF functions fine
Progress Note - Hemodialysis
-
Date of Service: May 02, 2025
Duration: 30 minutes and 3 hours
Potassium Bath: 2
Calcium Bath: 2.5
Opti-Dialyzer: 160
Ultrafiltration: Other (1kg)
Blood Flow: 400
Dialysate Flow: 600
Heparin: no
EPO: no
[2025-05-02] MEDS: FLEXBUMIN 25% FOR HEMODIALYSIS 12.5 GRAMS IV (15:19)
--- NOTE | 2025-05-02 17:48 | W.PN.UPDATE ---
Update Note
Progress Note Update
RN reported patient looking for update in the plan.
Of note patient admitted < 24hrs back and have been started on appropriate treatments.
Patient was concerned ' no one came back to see me ' - Patient has been evaluated by myself plow shaker and medical director of hospice in last 8 hrs
Patient continues to remain demanding and un-reasonable at time
Requesting to talk to 'head of the doctors' . I have initiated assessment by risk dept, discussed this with nursing co-ordinator community relations advisor at this hour.
[2025-05-02] MEDS: NOVOLOG FLEXPEN-LOW RESISTANCE SC (17:54)
[2025-05-02 17:57] LABS: Glucose - Point of Care 115 mg/dl (70-99)
[2025-05-02 19:25] LABS: Hemoglobin 10.7 g/dL (13.0-18.0)
[2025-05-02] MEDS: LMX 4 1 APPLIC TOPICAL (20:07)
[2025-05-02] MEDS: NITRO-BID 1 INCH TOPICAL (20:07)
[2025-05-02] MEDS: NEURONTIN 600 MG PO (20:07)
[2025-05-02] MEDS: NICODERM TRANSDERMAL 21 MG TRANSDERM (20:08)
[2025-05-02 21:42] LABS: Glucose - Point of Care 131 mg/dl (70-99)
[2025-05-03] VITALS (20 sets, daily range): BP systolic 66–116; BP diastolic 46–68
[2025-05-03 04:24] LABS: Glucose - Point of Care 126 mg/dl (70-99)
[2025-05-03 04:58] LABS: Blood Urea Nitrogen 21 mg/dl (9-20); Calcium 9.5 mg/dl (8.4-10.2); Carbon Dioxide 29 mmol/L (22-30); Chloride 95 mmol/L (98-107); Glucose 119 mg/dl (70-99); Potassium 4.4 mmol/L (3.5-5.1); Sodium 134 mmol/L (135-145); eGFR 10.90
[2025-05-03] MEDS: ZOSYN 50 IV ×3 (05:21→21:06)
--- NOTE | 2025-05-03 08:51 | W.PN.HOSP.TC ---
Today's Communication/Plan
-
start gabapentin
continue abx
repeat midodrine dose if SBP remains <100
advance to LR diet
Assessment / Plan
Assessment / Plan
CT a/p
Findings suspicious for mild nonspecific colitis involving the descending colon and rectosigmoid colon. No evidence of pneumatosis. No perforation or abscess. No bowel obstruction. The appendix is normal.
Cholelithiasis.

# Sepsis - POA
Chronic hypotension confounded by possible septic shock - Improving
-Leukocytosis 18k, lactic acid of 4 at admission - repeat CBC pending today
-Patient declined to be given IVF with ESRD, did not get 30ml/kg IVF bolus.
-Patient declined to be started on vasopressors and house REGISTERED NURSES has evaluated patient in the night
-Provided dose of midodrine 10mg yesterday and SBP is bit improved.
-Denies feeling dizzy, feels lehtargic.
# Acute colitis
Infectious vs ischemic vs other
Blood in stool - Improved
Acute blood loss Anemia with anemia of chronic renal disease
- reported some blood in the stool in ER, minor blood in stool reported by RN as well
- Hbg down from ~ 12.5 > 10.5 > repeat Hbg pending in the morning today
- CT a/p showing possible colitis involving descending colon and rectosigmoid colon.
- have h/o of AAA repair, CT abd images reviewed personally and have significant calcification of SMA/JULIO segment at origin
- Cdiff neg. Bacterial stool culture pending.
- On empiric zosyn
- Discussed with GI, advancing diet to LR diet
- GI discussed possible need of c-scope vs flex sig, patient want this to have done outpt basis.
# ESRD on hemodialysis
h/o ischemic nephropathy
- able to have HD round yesterday
- Nephro following and help appreciated.
# CAD status post CABG
- hold aspirin
- continue statin
# Type 2 diabetes
- Hold Lantus
- Insulin sliding scale
#History of diabetic neuropathy
- Resume gabapentin 600mg/bid
- complaining pain in UE/LE
# Tobacco use
- nicotine patch ordered
Essential hypertension
History of CVA
History of smoking
Abdominal aortic aneurysm status postrepair at [place]
Full code
DVT prophylaxis�heparin
05/02 Patient have declined life saving measures for sepsis/septic shock in night. Patient not happy for not being fed and not been seen earlier. All appropriate treatment have been intiated from ER and patient is dictating treatment regimen, putting
himself at risk. I have clarified this with the patient. Patient willing to start vasopressors if needed. Discussed with nephrology electric gas appliances demonstrator and patient BP has been on lower side for last few months. Patient will be given midodrine dose first and if
BP not improved will be started on vasopressors. I have communicated this to patient.
Total time spent : 54 mins
Anticipated Discharge: Within 24 hours
Subjective/Interval History
-
Date of Service: May 03, 2025
continues to have diarrhea, no blood in stool
feeling lethargic/tired
BP remains soft, patient attributes it to being not fed.
Objective Data
-
Labs:
Laboratory Results
05/03/25
04:11
WBC Pending
Hgb Pending
Hct Pending
Plt Count Pending
Sodium 134 L
Potassium 4.4
Chloride 95 L
Carbon Dioxide 29
BUN 21 H
Creatinine 5.6 H*
Glucose 119 H
Calcium 9.5
Vital Signs:
Vital Signs
Temp Pulse Resp BP Pulse Ox
98.8 F 89 11 97/59 95
05/03/25 07:20 05/03/25 06:00 05/01/25 21:30 05/03/25 06:00 05/03/25 06:00
I&O
05/02/25 05/03/25 05/04/25
06:59 06:59 06:59
Intake Total 530 / 530
Balance 530 / 530
Review of Systems
-
Respiratory: Reports No Symptoms
Cardiac: Reports No Symptoms
Abdomen/GI: Reports Diarrhea; Denies Abdominal Pain, Nausea or Vomiting
Physical Exam
-
General: Negative Appears in Distress
HEENT: Negative Oxygen
GI: Soft, Nontender, Nondistended and Normal Bowel Sounds
Neuro: Awake, Alert, Oriented and No Motor Deficits
Psych: Calm
[2025-05-03 09:21] LABS: Glucose - Point of Care 136 mg/dl (70-99)
[2025-05-03] MEDS: NEURONTIN 600 MG PO ×2 (09:37→21:06)
[2025-05-03] MEDS: NOVOLOG FLEXPEN-LOW RESISTANCE SC ×2 (09:37→19:41)
[2025-05-03] MEDS: LMX 4 1 APPLIC TOPICAL ×2 (09:42→21:05)
[2025-05-03 09:53] LABS: Hematocrit 29.7 % (39.0-52.0); Hemoglobin 10.0 g/dL (13.0-18.0); Mean Corp Hgb Conc. 33.7 g/dL (33.0-37.0); Mean Corpuscular Volume 97.7 fL (80.0-94.0); Platelet Count 164 10^3/uL (130-400); Red Cell Dist. Width 14.9 % (11.5-14.5)
--- NOTE | 2025-05-03 11:03 | W.PN.NEPH.PH ---
Today's Communication / Plan
-
see plan
Assessment/Plan
-
IMP:
Sepsis - POA
Acute colitis
ESRD-due to ischemic nephropathy - HD initiated December 2021-MWF at [facility]
IDDM
Peripheral neuropathy from diabetes
CAD with prior stenting and CABG
History CVA
HLD
Active smoker on presentation
AAA repair 2019 at [place]
Secondary hyperparathyroidism
Anemia of CKD
Left UE AVF
Plan:
A/w bloody diarrhea , CT noted colitis-GI follows
BP remains soft, cont midodrine
while having diarrhea ok to have FR lift upto 40 ounces/day
phos binder when starts solid diet
abx per GI and primary
d/w pt and nursing
d/c plan
-
-
Date of Service: May 03, 2025
CC / HPI / ROS
-
Chief Complaint:
ESRD
History of Present Illness:
BP soft still
tolerated HD yesterday
wbc better 10.5
hb stable 10
Review of Systems:
no CP/SOB
no dizziness
still with diarrhea but no blood
Labs
-
Labs:
WBC 10.5 10^3/uL (4.8-10.8) 05/03/25 04:11
RBC 3.04 10^6/uL (4.70-6.10) L 05/03/25 04:11
Hgb 10.0 g/dL (13.0-18.0) L 05/03/25 04:11
Hct 29.7 % (39.0-52.0) L 05/03/25 04:11
Plt Count 164 10^3/uL (130-400) 05/03/25 04:11
Sodium 134 mmol/L (135-145) L 10/04/25 04:11
Potassium 4.4 mmol/L (3.5-5.1) 05/03/25 04:11
Chloride 95 mmol/L (98-107) L 05/03/25 04:11
Carbon Dioxide 29 mmol/L (22-30) 05/03/25 04:11
BUN 21 mg/dl (9-20) H 05/03/25 04:11
Creatinine 5.6 mg/dL (0.7-1.3) H* 05/03/25 04:11
eGFR 10.90 05/03/25 04:11
Glucose 119 mg/dl (70-99) H 05/03/25 04:11
Calcium 9.5 mg/dl (8.4-10.2) 05/03/25 04:11
Albumin 4.0 g/dl (3.5-5.0) 05/02/25 05:10
Physical Exam
-
Vital Signs:
Vital Signs
Temp Pulse Resp BP Pulse Ox
98.8 F 110 11 97/59 86
05/03/25 07:20 05/03/25 09:00 05/01/25 21:30 05/03/25 06:00 05/03/25 09:00
Cardiovascular:: Regular rate and rhythm
Respiratory:: Bilateral: CTA
Lung Excursion:: Normal
Abdomen:: Nontender and Soft
Bowel Sounds:: Normal
Extremity Edema:: None: Bilateral:
[2025-05-03] MEDS: NOVOLOG FLEXPEN 16 UNITS SC ×3 (11:09→19:40)
[2025-05-03 13:02] LABS: Glucose - Point of Care 339 mg/dl (70-99)
[2025-05-03] MEDS: NOVOLOG FLEXPEN-LOW RESISTANCE 4 UNITS SC (13:34)
--- NOTE | 2025-05-03 14:27 | W.PN.GI.CBS2 ---
Today's Communication / Plan
-
advance diet, monitor bowels
Assessment / Plan
-
59-year-old male past medical history as below including dialysis, chronic hypotension presenting with diarrhea and rectal bleeding. This started on Monday at dialysis. He would have a bowel movement every 10 to 15 minutes. He also had severe
rectal pain. He denies any true abdominal tenderness although stated when his doctor evaluated in the office and palpated his abdomen he felt some tenderness I reviewed his primary note yesterday who recommended he go to the emergency room at that
time his blood pressure dropped to 64 sitting up. He was found to have hemoglobin 10.7 which is around his baseline, white blood cell count as high as 17.8 on admission, CT scan with findings suspicious for mild nonspecific colitis in the
descending colon and rectosigmoid. He denies antibiotics, fevers chills, unusual foods, sick contacts, travel.
Differential diagnosis includes but not limited to infection, diverticular bleed, ischemic colitis although I would expect to have more pain that he is currently having, malignancy. I do think that he has an anal fissure as he had a lot of rectal
pain. When I examined him, he was in a lot of pain on his rectal area. I did not see a clear fissure.
Of note, his bleeding has stopped and his diarrhea seems to have slowed down.
At this time, recommend follow-up the remainder of the stool studies that are pending prelim negative. I also recommend to continue empiric antibiotics (plan for 7 day course). Trial of low residue diet today. Trend hemoglobin. For the possible
anal fissure, I have reached out to the pharmacist and we have ordered nitroglycerin and lidocaine cream to be applied.
D/w hospitalist. If diarrhea/bleeding continues to be resolved by tomorrow AM, plan discharge. If ongoing, would recommend cscope Monday. This was reviewed with patient. I sent a message to office to set up a follow up appt with us. He will
need Gol[facility] for prep given HD. Because of his chronic hypotension will need to be done in 12/03. Also recommend appt with colorectal surgery given severe anal pain.
Subjective
Subjective
Date of Service: May 03, 2025
had diarrhea overnight q1 hour but none since 10am
no further bleeding
no abd pain
anal pain but improved but did not try cream yet
Objective
Data Reviewed
Laboratory Data:
Laboratory Results
05/03/25 04:11
05/03/25 04:11
Laboratory Results
Total Bilirubin 0.6 mg/dl (0.2-1.3) 05/02/25 05:10
AST 18 U/L (17-59) 05/02/25 05:10
ALT 18 U/L (0-50) 05/02/25 05:10
Alkaline Phosphatase 113 U/L (38-126) 05/02/25 05:10
Lipase 270 U/L (23-300) 05/01/25 15:13
Vital Signs and I&O:
Vital Signs
Temp Pulse Resp BP Pulse Ox
98.8 F 103 11 116/64 83
05/03/25 07:20 05/03/25 11:00 05/01/25 21:30 05/03/25 10:53 05/03/25 10:53
I&O
05/02/25 05/03/25 05/04/25
06:59 06:59 06:59
Intake Total 530 / 530
Balance 530 / 530
Physical Exam
Physical Exam
GI: Non Distended and Non Tender
[2025-05-03] MEDS: NITRO-BID TOPICAL ×2 (15:26→20:15)
[2025-05-03] MEDS: NICODERM TRANSDERMAL 21 MG TRANSDERM (15:30)
[2025-05-03 17:38] LABS: Glucose - Point of Care 82 mg/dl (70-99)
[2025-05-03 19:55] LABS: Glucose - Point of Care 195 mg/dl (70-99)
[2025-05-03 21:40] LABS: Glucose - Point of Care 247 mg/dl (70-99)
--- NOTE | 2025-05-03 23:01 | PTCARENOTE ---
pt HS blood glucose 247. Pt requesting 10 units insulin coverage. MONOTYPE SETTER notified via tiger text. MONOTYPE SETTER stated no need to cover at this time. Pt informed of MONOTYPE SETTER decision. Pt continues to request insulin, stating that 'he can feel it in his fingers that his
blood sugar is high'. MONOTYPE SETTER came up to floor to speak with patient, informed him that we could check his blood sugar in a couple hours and reassess the need for insulin coverage.
[2025-05-03 23:48] LABS: Glucose - Point of Care 267 mg/dl (70-99)
[2025-05-04] VITALS (11 sets, daily range): BP systolic 80–117; BP diastolic 54–76
[2025-05-04] MEDS: ZOSYN 50 IV (04:49)
[2025-05-04 05:29] LABS: Blood Urea Nitrogen 38 mg/dl (9-20); Calcium 9.3 mg/dl (8.4-10.2); Carbon Dioxide 25 mmol/L (22-30); Chloride 98 mmol/L (98-107); Glucose 209 mg/dl (70-99); Potassium 4.2 mmol/L (3.5-5.1); Sodium 137 mmol/L (135-145); eGFR 6.34
[2025-05-04 05:33] LABS: Hematocrit 29.3 % (39.0-52.0); Hemoglobin 9.9 g/dL (13.0-18.0); Mean Corp Hgb Conc. 33.8 g/dL (33.0-37.0); Mean Corpuscular Volume 96.7 fL (80.0-94.0); Platelet Count 168 10^3/uL (130-400); Red Cell Dist. Width 14.6 % (11.5-14.5)
[2025-05-04 08:58] LABS: Glucose - Point of Care 135 mg/dl (70-99)
[2025-05-04] MEDS: NEURONTIN 600 MG PO (09:07)
[2025-05-04] MEDS: LMX 4 1 APPLIC TOPICAL (09:07)
[2025-05-04] MEDS: NOVOLOG FLEXPEN-LOW RESISTANCE SC (09:08)
[2025-05-04] MEDS: NOVOLOG FLEXPEN 16 UNITS SC (09:09)
[2025-05-04] MEDS: NICODERM TRANSDERMAL TRANSDERM (09:11)
[2025-05-04] MEDS: NITRO-BID TOPICAL (09:11)
--- NOTE | 2025-05-04 10:50 | PTCARENOTE ---
No BM's overnight. Patient offers no complaints. Discharged to home today.
--- NOTE | 2025-05-04 11:28 | W.PN.NEPH.PH ---
Today's Communication / Plan
-
ok for d/c
Assessment/Plan
-
IMP:
Sepsis - POA
Acute colitis
ESRD-due to ischemic nephropathy - HD initiated December 2021-MWF at [facility]
IDDM
Peripheral neuropathy from diabetes
CAD with prior stenting and CABG
History CVA
HLD
Active smoker on presentation
AAA repair 2019 at [place]
Secondary hyperparathyroidism
Anemia of CKD
Left UE AVF
Plan:
A/w bloody diarrhea , CT noted colitis-GI follows
BP improving with out midodrine
resume home meds
abx per GI and primary
Pt will return to HD unit tomorrow
d/w pt and nursing
d/c plan
-
-
Date of Service: May 04, 2025
CC / HPI / ROS
-
Chief Complaint:
ESRD
History of Present Illness:
BP stable
hb stable 9.9
no fever
Review of Systems:
no CP/SOB
no dizziness
diarrhea resolved
Labs
-
Labs:
WBC 9.3 10^3/uL (4.8-10.8) 05/04/25 04:31
RBC 3.03 10^6/uL (4.70-6.10) L 05/04/25 04:31
Hgb 9.9 g/dL (13.0-18.0) L 05/04/25 04:31
Hct 29.3 % (39.0-52.0) L 05/04/25 04:31
Plt Count 168 10^3/uL (130-400) 05/04/25 04:31
Sodium 137 mmol/L (135-145) 05/04/25 04:31
Potassium 4.2 mmol/L (3.5-5.1) 05/04/25 04:31
Chloride 98 mmol/L (98-107) 05/04/25 04:31
Carbon Dioxide 25 mmol/L (22-30) 05/04/25 04:31
BUN 38 mg/dl (9-20) H 05/04/25 04:31
Creatinine 8.8 mg/dL (0.7-1.3) H* 05/04/25 04:31
eGFR 6.34 05/04/25 04:31
Glucose 209 mg/dl (70-99) H 05/04/25 04:31
Calcium 9.3 mg/dl (8.4-10.2) 05/04/25 04:31
Albumin 4.0 g/dl (3.5-5.0) 05/02/25 05:10
Physical Exam
-
Vital Signs:
Vital Signs
Temp Pulse Resp BP Pulse Ox
97.6 F 84 11 106/55 95
05/04/25 08:00 05/04/25 09:00 05/01/25 21:30 05/04/25 08:00 05/04/25 09:03
Cardiovascular:: Regular rate and rhythm
Respiratory:: Bilateral: CTA
Lung Excursion:: Normal
Abdomen:: Nontender and Soft
Bowel Sounds:: Normal
Extremity Edema:: None: Bilateral:
Quick Catheter: No
--- NOTE | 2025-05-04 11:30 | CM ---
Following up on Patient. Patient discharge no needs and left before IMM was completed.
PLAN: Discharge No Needs
--- NOTE | 2025-05-04 12:59 | W.DCSUMMARY ---
Discharge Summary
Discharge Data
Date of Admission: 05/01/25
Date of Discharge: 05/04/25
-
Pending Results: No
Hospital Course
Discharging Physician : Dr Pritesh Weinstein
Disposition : To home
Primary care physician : Dr Troy Husain
Principal Discharge diagnosis :
Acute colitis infectious versus ischemic
Sepsis with septic shock
Blood in stool
Acute blood loss anemia
Lactic acidosis
Chronic Discharge diagnosis :
End-stage renal disease on hemodialysis
History of chronic hypotension on midodrine
History of ischemic nephropathy
Anemia of chronic renal disease
Coronary disease with history of bypass
Type 2 diabetes mellitus
History of diabetic neuropathy
Active tobacco use
Physical examination:
HEENT: moist mucus membrane
Chest: Clear to auscultation
Heart: Regular rate/rhythm, no murmur
Abd: N BS, soft, nontender, nondistended, no organomegaly
Neuro: No motor deficits, aox3
Ext: No cyanosis, Clubbing, edema
Hospital Course :
Patient is a 59-year-old male with above-mentioned past medical history came to ER with new onset of diarrhea and some reported blood in stool. No associated nausea vomiting or fever. Patient came to ER for further evaluation and on CT abdomen
pelvis was noted to having colitis of descending colon and rectosigmoid. Patient lactic acid sooner marginally elevated and patient was hypotensive. Patient was diagnosed to have possible infectious versus ischemic colitis and septic shock from
it. Patient was started on empiric antibiotic. Patient was started on IV fluid for resuscitation although patient declined with a history of ESRD. Patient was also ordered to be started on vasopressors although he declined that as well. After
repeat discussion patient was agreeable for vasopressor initiation. Patient was provided initially high dose of midodrine with which patient blood pressure had improved. GI and nephrology was involved in care and patient had scheduled round of
hemodialysis during the hospital stay. GI recommended for possible need of flex sigmoidoscopy versus colonoscopy although patient preferred this to be done on outpatient basis. Patient was maintained on restricted diet and IV antibiotic with which
patient improvement in symptoms. After advancement to solid food and patient's stability of tolerating the food patient was discharged home with few days of oral antibiotic. Patient will follow-up with gastroenterology in office for elective flex
sigmoidoscopy versus colonoscopy.
Important imaging findings :
None
Procedure findings :
None
Discharge Plan
-
Patient Disposition: Home (Routine Discharge)
Discharge Diagnosis/Procedures: Acute colitis infectious versus ischemic, sepsis and septic shock
Condition: Fair
Diet: Other diet
Additional Diets: Low residue diet for 5 days then to pre-admission renal diet
Activity: As tolerated
Driving Restrictions: As prior to admission
Bathing Restrictions: OK to Shower
Referrals:
Jacy Briones MD [Active, Gastroenterology] - in two to four weeks
Troy Husain MD [Family Provider, Internal Medicine] - in one week
Prescriptions:
New
cefdinir 300 mg capsule
300 mg PO BID 5 Days Qty: 10 0RF
metronidazole 500 mg tablet
500 mg feeding tube Q8H 5 Days Qty: 15 0RF
Continued
atorvastatin 80 MG tablet
80 mg PO HS
gabapentin 300 MG capsule
600 mg PO BID
cholecalciferol (vitamin D3) 1,000 UNITS tablet
1,000 units PO DAILY
aspirin 81 mg Tablet,Delayed Release (Dr/Ec)
81 mg PO DAILY
Velphoro 500 mg tablet,chewable
500 mg PO MEALS
midodrine 10 mg Tablet
20 mg PO MOWEFR
insulin glargine [Lantus Solostar U-100 Insulin] 100 unit/mL (3 mL) Insulin Pen
24 unit SC HS
icosapent ethyl 1 gram capsule
1 g PO BID
Changed
insulin aspart U-100 [Novolog U-100 Insulin aspart] 100 unit/mL Solution
16 unit SC AC Qty: 0 0RF
Held
carvedilol 12.5 mg tablet
12.5 mg PO BID
Hold Instructions: Resume on 05/05/25.
Discontinued
amoxicillin-pot clavulanate 875-125 mg tablet
1 tab PO BID Qty: 20 0RF
Discharge Orders:
Discharge Patient (As Directed); Ordered 05/04/25
Ordered By: Pritesh Weinstein
Discharge Date and Time
Discharge Date/Time: 05/04/25 10:50
Print Language: MALAY
== END 2025-05-04 10:50 | disposition home or self-care (01) | DRG 871 ==
LOC: IMU 20:53
PROVIDERS: Emergency Medicine; ADMITTING PHYSICIAN Hospitalist; ATTENDING PHYSICIAN Hospitalist; CONSULT PHYSICIAN Internal Medicine Gastroenterology; EMERGENCY PHYSICIAN Emergency Medicine; FAMILY PHYSICIAN Internal Medicine; OTHER PHYSICIAN Internal Medicine
PROC: 5A1D70Z Performance of Urinary Filtration, Intermittent, Less than 6 Hours Per Day (ICD-10-PCS; 2025-05-02)
DX: A41.9 Sepsis, unspecified organism (principal); N18.6 End stage renal disease; R65.21 Severe sepsis with septic shock; K62.5 Hemorrhage of anus and rectum; I12.0 Hypertensive chronic kidney disease with stage 5 chronic kidney disease or end stage renal disease; N25.81 Secondary hyperparathyroidism of renal origin; D62 Acute posthemorrhagic anemia; K52.9 Noninfective gastroenteritis and colitis, unspecified; E11.42 Type 2 diabetes mellitus with diabetic polyneuropathy; I25.10 Atherosclerotic heart disease of native coronary artery without angina pectoris; D63.1 Anemia in chronic kidney disease; E78.00 Pure hypercholesterolemia, unspecified; E11.22 Type 2 diabetes mellitus with diabetic chronic kidney disease; F17.200 Nicotine dependence, unspecified, uncomplicated; K80.20 Calculus of gallbladder without cholecystitis without obstruction; I95.89 Other hypotension; Z99.2 Dependence on renal dialysis; Z95.5 Presence of coronary angioplasty implant and graft; Z95.1 Presence of aortocoronary bypass graft; Z86.79 Personal history of other diseases of the circulatory system; Z79.82 Long term (current) use of aspirin; Z79.899 Other long term (current) drug therapy; Z79.4 Long term (current) use of insulin; Z86.73 Personal history of transient ischemic attack (TIA), and cerebral infarction without residual deficits; Z11.52 Encounter for screening for COVID-19
CPT/HCPCS: 74177; 80048; 80053; 82962; 83036; 83605; 83690; 85018; 85025; 85027; 86850; 86900; 86901; 87040; 87045; 87046; 87070; 87324; 87427; 87449; 87811; 93005; 96361; 96374; 96375; 99285; 99406; G0257; P9047; Q9967

== ENCOUNTER → 2025-06-03 10:17 | Outpatient (REF) | payer MEDICARE, OTHER, SELFPAY | LOC: RAD 10:17 | PROVIDERS: ATTENDING PHYSICIAN Surgery Vascular Surgery; FAMILY PHYSICIAN Internal Medicine | DX: I73.9 Peripheral vascular disease, unspecified (principal) | CPT/HCPCS: 93922 ==

== ENCOUNTER 2025-07-01 06:12 | Day surgery (SDC) | payer MEDICARE, OTHER, SELFPAY ==
[2025-07-01 07:04] VITALS: BMI 23.7
[2025-07-01 07:16] VITALS: BMI 23.7
[2025-07-01 07:17] VITALS: BP 101/62
[2025-07-01 07:32] LABS: Glucose - Point of Care 166 mg/dl (70-99)
[2025-07-01 09:00] VITALS: BP 110/67
[2025-07-01 09:10] VITALS: BP 110/67
[2025-07-01 09:25] VITALS: BP 110/73
[2025-07-01 09:40] VITALS: BP 93/77
== END 2025-07-01 09:46 | disposition home or self-care (01) ==
LOC: SDS 06:12
PROVIDERS: ATTENDING PHYSICIAN Internal Medicine
DX: D12.5 Benign neoplasm of sigmoid colon (principal); D12.3 Benign neoplasm of transverse colon; K63.5 Polyp of colon; K63.89 Other specified diseases of intestine; K57.30 Diverticulosis of large intestine without perforation or abscess without bleeding; K62.1 Rectal polyp; R93.3 Abnormal findings on diagnostic imaging of other parts of digestive tract; K64.9 Unspecified hemorrhoids
CPT/HCPCS: 45385; 45380; 45381; 82962; 88305; 88341; 88342

== ENCOUNTER → 2025-07-17 08:58 | Outpatient (REF) | payer MEDICARE, OTHER, SELFPAY | LOC: DHVS 08:58 | PROVIDERS: ATTENDING PHYSICIAN Surgery Vascular Surgery | DX: N18.6 End stage renal disease (principal); Z99.2 Dependence on renal dialysis | CPT/HCPCS: 93990 ==

== ENCOUNTER 2025-07-29 11:25 | Emergency (ER) | payer MEDICARE, OTHER, SELFPAY ==
[2025-07-29 11:43] VITALS: BP 83/61
[2025-07-29 12:04] LABS: Hematocrit 34.8 % (39.0-52.0); Hemoglobin 11.8 g/dL (13.0-18.0); Mean Corp Hgb Conc. 33.9 g/dL (33.0-37.0); Mean Corpuscular Volume 100.6 fL (80.0-94.0); Nucleated Red Blood Cells % 0 % (-); Platelet Count 230 10^3/uL (130-400); Red Cell Dist. Width 15.6 % (11.5-14.5)
[2025-07-29 12:27] LABS: Troponin I 0.016 ng/ml
[2025-07-29 12:33] LABS: ALT (SGPT) 18 U/L (0-50); AST (SGOT) 24 U/L (17-59); Albumin 4.4 g/dl (3.5-5.0); Alkaline Phosphatase 184 U/L (38-126); Blood Urea Nitrogen 12 mg/dl (9-20); Calcium 8.8 mg/dl (8.4-10.2); Carbon Dioxide 29 mmol/L (22-30); Chloride 91 mmol/L (98-107); Glucose 214 mg/dl (70-99); Potassium 5.0 mmol/L (3.5-5.1); Sodium 133 mmol/L (135-145); Total Protein 7.3 g/dl (6.3-8.2); eGFR 15.40
== END 2025-07-29 12:44 ==
LOC: EMR 11:25
PROVIDERS: Emergency Medicine
DX: Z53.21 Procedure and treatment not carried out due to patient leaving prior to being seen by health care provider (principal)
CPT/HCPCS: 80053; 84484; 85025; 93005